=== PATIENT | female | born 1965 | race Caucasian/White ===

== ENCOUNTER 2017-02-27 16:34 | Emergency (ER) | payer BC ==
[2017-02-27 17:08] VITALS: BP 141/70
--- NOTE | 2017-02-28 15:07 | ER ---
DATE SEEN: 02/27/2017 She was seen at 1655 hours. CHIEF COMPLAINT: Right eye pain. HISTORY OF PRESENT ILLNESS: The patient tried to remove a contact from her right eye last night, and she has what she considers to be an abrasion in right eye. She has severe pain. She has been unable to get into the hospital ER because she did not have a ride until now, much later in the day. She has suffered through this since last night, about 12 to 16 hours since she had the abrasion in the right eye. Vision is compromised in her right eye. There is severe pain. PAST MEDICAL HISTORY: Depression, GERD, chronic pain, and anxiety. REVIEW OF SYSTEMS: Otherwise negative. PHYSICAL EXAMINATION: VITAL SIGNS: Blood pressure 141/40, heart rate 75, respirations 18, oxygen saturation 100% on room air, and 36.6 degrees centigrade temperature. HEENT: Examination with both fluorescein stain and after tetracaine placed, she has an inferior 4 o'clock to 8 o'clock limbus abrasion that extends over the cornea and she has a markedly increased and more intense abrasion over the top of her eye from a 2 o'clock to 11 o'clock position. She also has partial opacification of the cornea. I am able to see the eyegrounds, retinal eye vessels, and also the optic cup and discs and they are normal. ASSESSMENT: Very severe corneal abrasion with possible underlying conjunctivitis. PLAN: Treat with moxifloxacin drops b.i.d. and also treat with liquid tears and hydrocodone 5/325 for pain. Follow up with doctor in less than 24 hours. She will be seen by doctor and/or marketing project coordinator for status of eye. She was not given any topical eye analgesic medicine. She also was given ketorolac 1 drop right eye q.i.d. Follow up with doctor in 24 hours and/or marketing project coordinator. Also, she had a vision check, and the vision was absent. She could only see to 20/200. /[id number] CORINNE/MELISA XIONG
== END 2017-02-27 17:30 | disposition home or self-care (01) ==
LOC: FB.ED 16:34
DX: S05.01XA Injury of conjunctiva and corneal abrasion without foreign body, right eye, initial encounter (principal); X58.XXXA Exposure to other specified factors, initial encounter
CPT/HCPCS: 99283

== ENCOUNTER 2017-05-12 23:24 | Emergency (ER) | payer BC ==
[2017-05-12] MEDS ORDERED: Aspirin 81 MG Tab.Chew PO ONE (23:30)
[2017-05-13] MEDS ORDERED: Alum Hydroxide/Mag Hydroxide 30 ML, Lidocaine 2% 15 ML PO ONE ×4 (00:16→00:56)
--- NOTE | 2017-05-13 01:13 | EDM.PDOC ---
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 pt ate cold meat and cheese and 9 PM and onset of epigastric burning that radiated up under her sternum, slight nausea, no V, no sob, no f/c/d pain 04/08 altho looked fairly comfortable, pain dec'd 12/07 after 1st GI cocktail with 1+ epigastric tender that dec'd to trace pain and tenderness improved after 2nd GI cocktail altho not gone completely labs and EKG all neg, pt eager to get back to work tonight, did reluctantly agree to take the rest of the night off and to get some rest PCP Dr Mitchell did have evaluation and u/s 2y ago for GB disease which pt says was indeterminate has smoked 1 ppd in past h/o GERD took no meds tonight reports she has been having similar episodes of epigastric pain weekly for the past several weeks, not always with eating food Chest Pain Score (Numeric/FACES): 10 - Related Data Allergies Allergy/AdvReac Type Severity Reaction Status Date / Time Penicillins Allergy Cannot Verified 05/12/17 23:55 Remember sulfamethoxazole Allergy Cannot Verified 05/12/17 23:55 [From Bactrim] Remember trimethoprim [From Bactrim] Allergy Cannot Verified 05/12/17 23:55 Remember Home Meds: Home Meds Gabapentin [Neurontin] 1 tab PO BID 07/14/14 [History] Sertraline [Zoloft] 1 tab PO DAILY 07/14/14 [History] Amitriptyline [Elavil] 10 mg PO BEDTIME 05/12/17 [History] Omeprazole 20 mg PO DAILY #14 cap.cr 05/13/17 [Rx] Potassium Chloride [K-Tab ER] 20 meq PO BID #6 tablet.er 05/13/17 [Rx] Past Medical History - Past Health History Medical/Surgical History: Denies Medical/Surgical History Social & Family History - Tobacco Use Smoking Status *Q: Current Every Day Smoker Years of Tobacco use: 35 Packs/Tins Daily: 0.2 Second Hand Smoke Exposure: No - Caffeine Use Caffeine Use: Reports: Coffee, Soda - Alcohol Use Days Per Week of Alcohol Use: 3 Number of Drinks Per Day: 2 Total Drinks Per Week: 6 - Recreational Drug Use Recreational Drug Use: No ED ROS GENERAL - Review of Systems Review Of Systems: See Below Constitutional: Reports: No Symptoms HEENT: Reports: No Symptoms Respiratory: Reports: No Symptoms Cardiovascular: Reports: No Symptoms Endocrine: Reports: No Symptoms GI/Abdominal: Reports: Abdominal Pain, Nausea : Reports: No Symptoms Musculoskeletal: Reports: No Symptoms Skin: Reports: No Symptoms Neurological: Reports: No Symptoms Psychiatric: Reports: No Symptoms Hematologic/Lymphatic: Reports: No Symptoms Immunologic: Reports: No Symptoms ED EXAM, GI/ABD - Physical Exam Exam: See Below Exam Limited By: No Limitations General Appearance: Alert, WD/WN, Mild Distress Ears: Normal External Exam Nose: Normal Inspection Throat/Mouth: Normal Inspection, Normal Voice, No Airway Compromise Head: Atraumatic, Normocephalic Neck: Normal Inspection, Supple, Non-Tender, Full Range of Motion Respiratory/Chest: No Respiratory Distress, Lungs Clear, Normal Breath Sounds, No Accessory Muscle Use, Chest Non-Tender Cardiovascular: Normal Peripheral Pulses, Regular Rate, Rhythm, No Edema, No Gallop, No JVD, No Murmur, No Rub GI/Abdominal Exam: Normal Bowel Sounds, Soft, No Organomegaly, No Distention, No Mass, Pelvis Stable, Other (1+ epigastric tender, sternum and ribs NT, holding hand over epigastrium) Back Exam: Normal Inspection, Full Range of Motion, NT Extremities: Normal Inspection, Normal Range of Motion, Non-Tender, No Pedal Edema Neurological: Alert, Oriented, CN II-XII Intact, Normal Cognition, No Motor/ Sensory Deficits Psychiatric: Normal Affect, Normal Mood Skin Exam: Warm, Dry, Intact, Normal Color, No Rash Lymphatic: No Adenopathy Course - Vital Signs Last Recorded V/S: Last Vital Signs Temp 36.6 C 05/12/17 23:24 Pulse Resp BP Pulse Ox - Orders/Labs/Meds Orders: Active Orders 24 hr Category Date Time Status Pantoprazole [ProTONIX] Med 05/13/17 01:45 Active 40 mg PO 0600 Medication Orders Pantoprazole Sodium (Protonix) 40 mg PO 0600 LONNIE Last Admin: 05/13/17 01:46 Dose: 40 mg Labs: Laboratory Tests 05/12/17 05/12/17 05/12/17 Range/Units 00:35 23:35 23:35 WBC 6.5 (4.5-12.0) X10-3/uL RBC 4.62 (3.23-5.20) x10(6)uL Hgb 13.5 (11.5-15.5) g/dL Hct 39.9 (30.0-51.3) % MCV 86.4 (80-96) fL MCH 29.3 (27.7-33.6) pg MCHC 33.9 (32.2-35.4) g/dL RDW 14.4 (11.5-15.5) % Plt Count 240 (125-369) X10(3)uL MPV 8.8 (7.4-10.4) fL Neut % (Auto) 56.7 (46-82) % Lymph % (Auto) 32.8 (13-37) % [facility] % (Auto) 7.8 (4-12) % Eos % (Auto) 2 (1.0-5.0) % Baso % (Auto) 1 (0-2) % Neut # (Auto) 3.8 (1.6-8.3) # Lymph # (Auto) 2.1 (0.6-5.0) # [facility] # (Auto) 0.5 (0.0-1.3) # Eos # (Auto) 0.1 (0.0-0.8) # Baso # (Auto) 0.0 (0.0-0.2) # Sodium 137 (135-145) mmol/L Potassium 2.9 L (3.5-5.3) mmol/L Chloride 103 (100-110) mmol/L Carbon Dioxide 26 (23-29) mmol/L BUN 9 (5-20) mg/dL Creatinine 0.6 (0.6-1.3) mg/dL Est Cr Clr Drug Dosing TNP Estimated GFR (MDRD) > 60 (>60) BUN/Creatinine Ratio 15.0 (9-20) Glucose 85 (80-116) mg/dL Calcium 9.3 (8.6-10.2) mg/dL Total Bilirubin 0.4 (0.1-1.3) mg/dL AST 21 (5-27) IU/L ALT 14 (14-26) IU/L Alkaline Phosphatase 51 L (56-112) IU/L Creatine Kinase (60-160) IU/L Troponin I (0.02-0.06) NG/ML Total Protein 7.6 (6.0-8.0) g/dL Albumin 4.3 (3.5-5.2) g/dL Globulin 3.3 g/dL Albumin/Globulin Ratio 1.3 Amylase 55 (28-100) U/L 05/12/17 05/12/17 05/13/17 Range/Units 23:35 23:35 02:05 WBC (4.5-12.0) X10-3/uL RBC (3.23-5.20) x10(6)uL Hgb (11.5-15.5) g/dL Hct (30.0-51.3) % MCV (80-96) fL MCH (27.7-33.6) pg MCHC (32.2-35.4) g/dL RDW (11.5-15.5) % Plt Count (125-369) X10(3)uL MPV (7.4-10.4) fL Neut % (Auto) (46-82) % Lymph % (Auto) (13-37) % [facility] % (Auto) (4-12) % Eos % (Auto) (1.0-5.0) % Baso % (Auto) (0-2) % Neut # (Auto) (1.6-8.3) # Lymph # (Auto) (0.6-5.0) # [facility] # (Auto) (0.0-1.3) # Eos # (Auto) (0.0-0.8) # Baso # (Auto) (0.0-0.2) # Sodium (135-145) mmol/L Potassium (3.5-5.3) mmol/L Chloride (100-110) mmol/L Carbon Dioxide (23-29) mmol/L BUN (5-20) mg/dL Creatinine (0.6-1.3) mg/dL Est Cr Clr Drug Dosing Estimated GFR (MDRD) (>60) BUN/Creatinine Ratio (9-20) Glucose (80-116) mg/dL Calcium (8.6-10.2) mg/dL Total Bilirubin (0.1-1.3) mg/dL AST (5-27) IU/L ALT (14-26) IU/L Alkaline Phosphatase (56-112) IU/L Creatine Kinase 67 (60-160) IU/L Troponin I < 0.01 L < 0.01 L (0.02-0.06) NG/ML Total Protein (6.0-8.0) g/dL Albumin (3.5-5.2) g/dL Globulin g/dL Albumin/Globulin Ratio Amylase (28-100) U/L Meds: Medications Generic Name Dose Route Start Last Admin Trade Name Freq PRN Reason Stop Dose Admin Pantoprazole Sodium 40 mg 05/13/17 01:45 05/13/17 01:46 Protonix PO 40 mg 0600 LONNIE Administration Discontinued Medications Generic Name Dose Route Start Last Admin Trade Name Freq PRN Reason Stop Dose Admin Hydrocodone Bitart/Acetaminophen 1 tab 05/13/17 01:32 05/13/17 01:42 [place] 325-5 Mg PO 05/13/17 01:33 1 tab ONETIME ONE Administration Al Hydroxide/Mg Hydroxide 30 0 ml 05/13/17 00:16 05/13/17 00:29 ml/ Lidocaine HCl 15 ml PO 05/13/17 00:17 45 ml ONETIME ONE Administration Al Hydroxide/Mg Hydroxide 30 0 ml 05/13/17 00:56 05/13/17 01:08 ml/ Lidocaine HCl 15 ml PO 05/13/17 00:57 45 ml ONETIME ONE Administration Ketorolac Tromethamine 60 mg 05/13/17 01:31 05/13/17 01:42 Toradol IM 05/13/17 01:32 60 mg ONETIME ONE Administration Pantoprazole Sodium 40 mg 05/13/17 06:00 Protonix PO 0600 LONNIE Potassium Chloride 40 meq 05/13/17 01:17 05/13/17 01:42 Klor-Con M20 PO 05/13/17 01:18 40 meq ONETIME ONE Administration Departure - Departure Time of Disposition: 02:35 Disposition: Home, Self-Care 01 Condition: Good Clinical Impression: GERD (gastroesophageal reflux disease), Hypokalemia - Discharge Information Prescriptions: Omeprazole 20 mg PO DAILY #14 cap.cr Potassium Chloride [K-Tab ER] 20 meq PO BID #6 tablet.er Instructions: Hypokalemia, Biliary Colic, Gastroesophageal Reflux Disease, Adult Referrals: PCP,None [Primary Care Provider] - Additional Instructions: To decrease acid production, take omeprazole 20 mg 1 tab daily for 2 weeks. To replace potassium and decrease spasm, take potassium 20 meq 1 tab 2 times a day for 3 days. To neutralize acid, take liquid antacid 15 cc (one tablespoon) 2 hours after meals and bedtime for 3 days. Limit fatty food. No work tonight. Return for ultrasound of your gallbladder as per instructions from radiology, who will call you. See your doctor in 2 days. Return to ED if you are feeling worse. Call your Physician or Return to Emergency Department if: * Your condition worsens in any way. * You develop fever greater than 100.4. * You have vomitting that does not stop with medications. * You have pain that is not controlled with medications. - My Orders Last 24 Hours: My Active Orders 05/13/17 01:45 Pantoprazole [ProTONIX] 40 mg PO 0600 - Assessment/Plan Last 24 Hours: My Active Orders 05/13/17 01:45 Pantoprazole [ProTONIX] 40 mg PO 0600
[2017-05-13] MEDS ORDERED: Potassium Chloride 20 MEQ Tab.ER PO ONE (01:17)
[2017-05-13] MEDS ORDERED: Ketorolac 60 MG/2 ML SDV IM ONE (01:31)
[2017-05-13] MEDS ORDERED: Acetaminophen/HYDROcodone 325-5 MG Tab PO ONE (01:32)
[2017-05-13] MEDS ORDERED: Pantoprazole 40 MG Tab.CR PO SCH ×2 (01:45→06:00)
== END 2017-05-13 02:45 | disposition home or self-care (01) ==
LOC: FB.ED 23:24
DX: K21.9 Gastro-esophageal reflux disease without esophagitis (principal); E87.6 Hypokalemia; F17.210 Nicotine dependence, cigarettes, uncomplicated; Z79.899 Other long term (current) drug therapy; Z88.0 Allergy status to penicillin; Z88.1 Allergy status to other antibiotic agents; Z88.2 Allergy status to sulfonamides
CPT/HCPCS: 36415; 80053; 82150; 82550; 84484; 85025; 93005; 96372; 99285; A9270; J1885

== ENCOUNTER 2017-10-05 20:58 | Emergency (ER) | payer BC ==
[2017-10-05] MEDS ORDERED: Ketorolac 60 MG/2 ML SDV IM ONE (21:13)
--- NOTE | 2017-10-05 21:52 | EDM.PDOC ---
ED HPI GENERAL MEDICAL PROBLEM - General Chief Complaint: Upper Extremity Injury/Pain Stated Complaint: RT SHOULDER PAIN Time Seen by Provider: 10/05/17 20:58 Source of Information: Reports: Patient History Limitations: Reports: No Limitations - History of Present Illness INITIAL COMMENTS - FREE TEXT/NARRATIVE: 52 y.o.w.f came to the ED after she injured her right shoulder on a cabinet. She has now right shoulder discomfort with movement. There is a small bruise on her prox shoulder. No N/V/D, no dizziness or any other acute medical issues. BP 131/81 Pulse 78 RR 18 Pulse ox 98% Temp 36.8 Onset Date: 10/05/17 Onset Time: 11:00 Duration: Hour(s):, Intermittent Location: Reports: Upper Extremity, Right (shoulder ) Quality: Reports: Ache, Burning, Dull Severity: Moderate Improves with: Reports: Rest Worsens with: Reports: Movement Context: Reports: Trauma Associated Symptoms: Reports: No Other Symptoms Rt shoulder pain Pain Score (Numeric/FACES): 9 - Related Data Allergies Allergy/AdvReac Type Severity Reaction Status Date / Time Penicillins Allergy Cannot Verified 10/05/17 21:14 Remember sulfamethoxazole Allergy Cannot Verified 10/05/17 21:14 [From Bactrim] Remember trimethoprim [From Bactrim] Allergy Cannot Verified 10/05/17 21:14 Remember Home Meds: Home Meds Gabapentin [Neurontin] 600 mg PO TID 07/14/14 [History] Sertraline [Zoloft] 100 mg PO DAILY 07/14/14 [History] Amitriptyline [Elavil] 10 mg PO BEDTIME 05/12/17 [History] Omeprazole 20 mg PO DAILY #14 cap.cr 05/13/17 [Rx] Orphenadrine [Norflex] 100 mg PO BID PRN #20 tab.er 10/05/17 [Rx] Past Medical History - Past Health History Medical/Surgical History: Denies Medical/Surgical History Cardiovascular History: Reports: Hypertension, Other (See Below) Other Cardiovascular History: "high blood pressure at times" - Past Surgical History HEENT Surgical History: Reports: Other (See Below) Other HEENT Surgeries/Procedures: "chronic tonsillitis" Social & Family History - Family History Family Medical History: Noncontributory - Tobacco Use Smoking Status *Q: Current Every Day Smoker Years of Tobacco use: 35 Packs/Tins Daily: 0.2 Second Hand Smoke Exposure: No - Caffeine Use Caffeine Use: Reports: Coffee, Soda - Alcohol Use Days Per Week of Alcohol Use: 3 Number of Drinks Per Day: 2 Total Drinks Per Week: 6 - Recreational Drug Use Recreational Drug Use: No Review of Systems - Review of Systems Review Of Systems: See Below Constitutional: Reports: No Symptoms Eyes: Reports: No Symptoms Ears: Reports: No Symptoms Nose: Reports: No Symptoms Mouth/Throat: Reports: No Symptoms Respiratory: Reports: No Symptoms Cardiovascular: Reports: No Symptoms GI/Abdominal: Reports: No Symptoms Genitourinary: Reports: No Symptoms Musculoskeletal: Reports: Shoulder Pain Skin: Reports: Rash (right shoulder) Neurological: Reports: No Symptoms Psychiatric: Reports: No Symptoms ED EXAM, GENERAL - Physical Exam Exam: See Below Exam Limited By: No Limitations General Appearance: Alert, WD/WN, Mild Distress Eye Exam: Bilateral Eye: Normal Inspection Ears: Normal External Exam Ear Exam: Bilateral Ear: Auricle Normal Nose: Normal Inspection, Normal Mucosa Throat/Mouth: Normal Inspection Head: Atraumatic, Normocephalic Neck: Normal Inspection, Supple, Non-Tender Respiratory/Chest: No Respiratory Distress, Lungs Clear, Normal Breath Sounds Cardiovascular: Normal Peripheral Pulses Peripheral Pulses: 2+: Brachial (L) GI/Abdominal: Normal Bowel Sounds, Soft (Female) Exam: Deferred Rectal (Female) Exam: Deferred Back Exam: Normal Inspection, Full Range of Motion Extremities: Limited Range of Motion (due to right shoulder discomfort) Neurological: Alert, Oriented, CN II-XII Intact, Normal Cognition Psychiatric: Normal Affect, Normal Mood Skin Exam: Warm Lymphatic: No Adenopathy Course - Vital Signs Text/Narrative:: 52 y.o.w.f came to the ED after she injured her right shoulder on a cabinet. She has now right shoulder discomfort with movement. There is a small bruise on her prox shoulder. No N/V/D, no dizziness or any other acute medical issues. BP 131/81 Pulse 78 RR 18 Pulse ox 98% Temp 36.8 PE: WNWD W F with right shoulder discomort after trauma, limited ROM right shoulder due to pain. Imaging: Right shoulder: NAD, official report is pending Impression: Right shoulder sprain DDX: rotator cuff tear Tx: Ice, Motrin, armsling Reexam: improved Plan: D/C with instructions Last Recorded V/S: Last Vital Signs Temp 36.5 C 10/05/17 22:10 Pulse 78 10/05/17 22:10 Resp 17 10/05/17 22:10 BP 139/75 10/05/17 22:10 Pulse Ox 99 10/05/17 22:10 - Orders/Labs/Meds Meds: Medications Discontinued Medications Generic Name Dose Route Start Last Admin Trade Name Brendan PRN Reason Stop Dose Admin Ketorolac Tromethamine 60 mg 10/05/17 21:13 10/05/17 21:22 Toradol IM 10/05/17 21:14 60 mg ONETIME ONE Administration Departure - Departure Time of Disposition: 21:52 Disposition: Home, Self-Care 01 Condition: Good Clinical Impression: Sprain of shoulder, right Qualifiers: Encounter type: initial encounter Shoulder sprain type: unspecified sprain Qualified Code(s): S43.401A - Unspecified sprain of right shoulder joint, initial encounter - Discharge Information Prescriptions: Orphenadrine [Norflex] 100 mg PO BID PRN #20 tab.er PRN Reason: for severe spasm only Instructions: Shoulder Pain Referrals: PCP,None [Primary Care Provider] - Forms: ED Department Discharge Additional Instructions: Please take motrin for pain, apply ice to the affected areas, use armsling, take Norflex for spasms. please f/u come back to the ED if your symptoms get worse acutely
[2017-10-05 22:15] VITALS: BP 139/75
--- NOTE | 2017-10-06 13:43 | CR ---
INDICATION: Hit bottom of cupboard door yesterday, bruising top of shoulder - AC joint area. RIGHT SHOULDER: Three views of the right shoulder were obtained and revealed minimal degenerative changes at the AC joint with no evidence of a fracture, dislocation, or other significant bone or joint abnormality. Adjacent ribs were intact in appearance. MTDD
== END 2017-10-05 22:10 | disposition home or self-care (01) ==
LOC: FB.ED 20:58
DX: S43.401A Unspecified sprain of right shoulder joint, initial encounter (principal); F17.210 Nicotine dependence, cigarettes, uncomplicated; I10 Essential (primary) hypertension; Z88.2 Allergy status to sulfonamides; Z88.1 Allergy status to other antibiotic agents; Z88.0 Allergy status to penicillin; Z79.899 Other long term (current) drug therapy; W22.8XXA Striking against or struck by other objects, initial encounter
CPT/HCPCS: 73030; 96372; 99283; J1885

== ENCOUNTER 2018-02-21 13:48 | Emergency (ER) | payer OTHER, BC ==
[2018-02-21] MEDS ORDERED: Lidocaine 2% 20 ML MDV INFILT ONE (13:49)
[2018-02-21] MEDS ORDERED: Ketorolac 60 MG/2 ML SDV IM ONE (14:25)
--- NOTE | 2018-02-21 14:25 | EDM.PDOC ---
ED HPI GENERAL MEDICAL PROBLEM - General Chief Complaint: Head Injury Stated Complaint: HEAD WOUND Time Seen by Provider: 02/21/18 13:48 Source of Information: Reports: Patient History Limitations: Reports: No Limitations - History of Present Illness INITIAL COMMENTS - FREE TEXT/NARRATIVE: 52 y.o.w.po came to the ed after she hit her head at work. She was brought to the ed by her coworker. No loc, no dizziness. Pt felt mild nauseated. No vomiting. No SOB, no other injuries or any other acute medical issues. BP 153/ 92 RR 18 O2 sat 98% on RA Temp 36.6 pulse 86 Onset Date: 02/21/18 Onset Time: 12:05 Duration: Hour(s): Location: Reports: Head Quality: Reports: Ache Improves with: Reports: Rest Worsens with: Reports: Movement Context: Reports: Trauma Associated Symptoms: Reports: No Other Symptoms Top of head Pain Score (Numeric/FACES): 8 - Related Data Allergies Allergy/AdvReac Type Severity Reaction Status Date / Time Penicillins Allergy Cannot Verified 02/21/18 14:06 Remember sulfamethoxazole Allergy Cannot Verified 02/21/18 14:06 [From Bactrim] Remember trimethoprim [From Bactrim] Allergy Cannot Verified 02/21/18 14:06 Remember Home Meds: Home Meds Gabapentin [Neurontin] 600 mg PO TID PRN 07/14/14 [History] Sertraline [Zoloft] 100 mg PO DAILY 07/14/14 [History] Amitriptyline [Elavil] 25 mg PO BEDTIME PRN 05/12/17 [History] Cyclobenzaprine HCl 10 mg BEDTIME PRN 02/21/18 [History] Ranitidine HCl [Zantac] 150 mg PO DAILY PRN 02/21/18 [History] Past Medical History - Past Health History Medical/Surgical History: Denies Medical/Surgical History Cardiovascular History: Reports: Hypertension, Other (See Below) Other Cardiovascular History: "high blood pressure at times" 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: Psychiatric History: Reports: Anxiety, Depression, Panic Attack - Past Surgical History HEENT Surgical History: Reports: Other (See Below) Other HEENT Surgeries/Procedures: "chronic tonsillitis" Social & Family History - Family History Family Medical History: Noncontributory - Caffeine Use Caffeine Use: Reports: Coffee, Soda ED ROS GENERAL - Review of Systems Review Of Systems: See Below Constitutional: Reports: No Symptoms HEENT: Reports: No Symptoms Respiratory: Reports: No Symptoms Cardiovascular: Reports: No Symptoms Endocrine: Reports: No Symptoms GI/Abdominal: Reports: No Symptoms : Reports: No Symptoms Musculoskeletal: Reports: No Symptoms Skin: Reports: Wound (right tim) Neurological: Reports: No Symptoms Psychiatric: Reports: No Symptoms Hematologic/Lymphatic: Reports: No Symptoms Immunologic: Reports: No Symptoms ED EXAM, HEAD INJURY - Physical Exam Exam: See Below Exam Limited By: No Limitations General Appearance: Alert, WD/WN, Mild Distress Head: Normocephalic, Other (scalp lac) Eyes: Bilateral Eye: Normal Inspection Ears: Normal External Exam Nose: Normal Inspection Throat/Mouth: Normal Inspection, Normal Lips, Normal Gums, Normal Oropharynx, Normal Voice, No Airway Compromise Neck: Non-Tender, Full Range of Motion, Normal Alignment, Normal Inspection Respiratory: No Respiratory Distress, Lungs Clear, Normal Breath Sounds, No Accessory Muscle Use, Chest Non-Tender Cardiovascular: Normal Peripheral Pulses, Regular Rate, Rhythm, No Edema, No Gallop, No JVD, No Murmur GI/Abdominal Exam: Normal Bowel Sounds, Soft, Non-Tender, No Organomegaly, No Distention, No Abnormal Bruit, No Mass, Pelvis Stable (Female) Exam: Deferred Rectal (Female) Exam: Deferred Back Exam: Normal Inspection, Full Range of Motion Extremities: Normal Inspection, Normal Range of Motion, Non-Tender, No Pedal Edema, Normal Capillary Refill 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 As Tested, No Motor/Sensory Deficits, Alert, Normal Mood/Affect, Oriented x 3 Skin: Normal Color, Other (head Lac) - Elpidio Coma Score Best Eye Response (Carlyle): (4) Open Spontaneously Best Verbal Response (Carlyle): (5) Oriented Best Motor Response (Carlyle): (6) Obeys Commands Elpidio Total: 15 ED LACERATION/WOUND & HALINA PROC - Laceration/Wound Repair Right Head Lac/wound length in cm: 1.5 (right tim) Appearance: Subcutaneous, Linear, Clean Distal NVT: Neuro & Vascular Intact, No Tendon Injury Anesthetic Type: Local Local Anesthesia - Lidocaine (Xylocaine): 2% Plain Local Anesthetic Volume: 1cc Skin Prep: Chlorhexidine (Hibiciens) Saline irrigation (cc's): 5 Exploration/Debridement/Repair: Wound Explored, In a Bloodless Field, Explored to Base Closed with: Tomasz # of Sutures: 3 Suture Type: Interrupted Drain Placement: No Sterile Dressing Applied: Nurse Tetanus Status Addressed: Yes (UTD < 5 years) Complications: No Course - Vital Signs Text/Narrative:: 52 y.o.w.f came to the ed after she hit her head at work. She was brought to the ed by her coworker. No loc, no dizziness. Pt felt mild nauseated. No vomiting. No SOB, no other injuries or any other acute medical issues. BP 153/ 92 RR 18 O2 sat 98% on RA Temp 36.6 pulse 86 PE: WNWD W F with a work related head LAC. No LOC procedure: Please see note above. Impression: Head Laceration, repaired in the ED Tx: Wound care, Toradol, Zofran Reexam: Improved Plan: D/C with instructions Last Recorded V/S: Last Vital Signs Temp 36.8 C 02/21/18 13:52 Pulse 91 02/21/18 13:52 Resp 18 02/21/18 14:33 BP 153/85 H 02/21/18 14:33 Pulse Ox 98 02/21/18 14:33 - Orders/Labs/Meds Meds: Medications Discontinued Medications Generic Name Dose Route Start Last Admin Trade Name Brendan PRN Reason Stop Dose Admin Ketorolac Tromethamine 60 mg 02/21/18 14:25 02/21/18 14:35 Toradol IM 02/21/18 14:26 60 mg ONETIME ONE Administration Ondansetron HCl 8 mg 02/21/18 14:26 02/21/18 14:34 Zofran Odt PO 02/21/18 14:27 8 mg ONETIME ONE Administration Departure - Departure Time of Disposition: 14:26 Disposition: Home, Self-Care 01 Condition: Good Clinical Impression: Laceration Head injury Qualifiers: Encounter type: initial encounter Qualified Code(s): S09.90XA - Unspecified injury of head, initial encounter - Discharge Information Instructions: Ketorolac injection, Stitches, [place], or Adhesive Wound Closure , [id number] Referrals: Shilpi Aguirre PA-C [Primary Care Provider] - Forms: ED Department Discharge Additional Instructions: Please apply Neosporin ointment to wound twice daily for the next 4 days, wound check in 3 days at clinic, staple removal in 5-7 days at clinic. Call for appt. Please come back to the ed if your symptoms get worse acutely. Tylenol as needed for pain.
[2018-02-21] MEDS ORDERED: Ondansetron 8 MG Tab.DIS PO ONE (14:26)
[2018-02-21 14:34] VITALS: BP 153/85
== END 2018-02-21 14:50 | disposition home or self-care (01) ==
LOC: FB.ED 13:48
DX: S01.01XA Laceration without foreign body of scalp, initial encounter (principal); I10 Essential (primary) hypertension; Z88.0 Allergy status to penicillin; Z88.2 Allergy status to sulfonamides; W22.8XXA Striking against or struck by other objects, initial encounter; Y93.89 Activity, other specified; Y92.89 Other specified places as the place of occurrence of the external cause; Y99.0 Civilian activity done for income or pay
CPT/HCPCS: 12001; 99000; 99283; A9270; J1885

== ENCOUNTER 2018-12-03 01:22 | Emergency (ER) | payer BC, OTHER ==
[2018-12-03] MEDS ORDERED: Albuterol/Ipratropium 3.0-0.5 MG/3 ML Neb Soln NEB ONE (01:38)
[2018-12-03] MEDS ORDERED: Aspirin 81 MG Tab.Chew PO ONE (01:38)
[2018-12-03] MEDS ORDERED: Nitroglycerin 2% Oint 1 GM UD Packet TOP ONE ×2 (01:41→02:30)
[2018-12-03] MEDS: Nitroglycerin 0.4 MG Tab.SL SL PRN ×2 (01:42→01:50)
--- NOTE | 2018-12-03 01:43 | EDM.PDOC ---
ED HPI GENERAL MEDICAL PROBLEM - General Stated Complaint: CHEST PAIN Time Seen by Provider: 12/03/18 01:22 Source of Information: Reports: Patient, Family History Limitations: Reports: No Limitations - History of Present Illness INITIAL COMMENTS - FREE TEXT/NARRATIVE: 53 y.o.w f -smoker- came to ed due to SSCP, nonradiating. No H/O Of CAD. Pain is rated as 10/10, worse with inspiration. No trauma. No diaphoresis. No SOB or cough. No other acute medical issues BP 168/88 Pulse ox 98% on RA Pulse 80 RR 18 Temp 36.6 Onset Date: 12/03/18 Onset Time: 01:00 Duration: Minutes: Location: Reports: Chest Quality: Reports: Ache, Burning, Dull Severity: Moderate Improves with: Reports: Cold Therapy, Rest Worsens with: Reports: Movement Associated Symptoms: Reports: No Other Symptoms, Chest Pain mid chest Pain Score (Numeric/FACES): 10 - Related Data Allergies Allergy/AdvReac Type Severity Reaction Status Date / Time Penicillins Allergy Cannot Verified 12/03/18 01:39 Remember sulfamethoxazole Allergy Cannot Verified 12/03/18 01:39 [From Bactrim] Remember trimethoprim [From Bactrim] Allergy Cannot Verified 12/03/18 01:39 Remember Home Meds: Home Meds Gabapentin [Neurontin] 600 mg PO TID PRN 07/14/14 [History] Sertraline [Zoloft] 100 mg PO DAILY 07/14/14 [History] Amitriptyline [Elavil] 25 mg PO BEDTIME PRN 05/12/17 [History] Cyclobenzaprine HCl 10 mg BEDTIME PRN 02/21/18 [History] Ranitidine HCl [Zantac] 150 mg PO DAILY PRN 02/21/18 [History] Acyclovir [Zovirax] 800 mg PO 5XDAY #30 tab 12/03/18 [Rx] Past Medical History - Past Health History Medical/Surgical History: Denies Medical/Surgical History Cardiovascular History: Reports: Hypertension, Other (See Below) Other Cardiovascular History: "high blood pressure at times" Gastrointestinal History: Reports: None Genitourinary History: Reports: None 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: Musculoskeletal History: Reports: Fracture Other Musculoskeletal History: hx R gt toe fx Neurological History: Reports: Migraines Psychiatric History: Reports: Anxiety, Depression, Panic Attack - Infectious Disease History Infectious Disease History: Reports: Chicken Pox, Shingles - Past Surgical History HEENT Surgical History: Reports: Other (See Below) Other HEENT Surgeries/Procedures: "chronic tonsillitis" Social & Family History - Family History Family Medical History: Noncontributory - Caffeine Use Caffeine Use: Reports: Coffee, Soda ED ROS GENERAL - Review of Systems Review Of Systems: See Below Constitutional: Reports: No Symptoms, Weight Gain HEENT: Reports: No Symptoms Respiratory: Reports: Cough Cardiovascular: Reports: No Symptoms Endocrine: Reports: No Symptoms GI/Abdominal: Reports: No Symptoms : Reports: No Symptoms Musculoskeletal: Reports: No Symptoms Skin: Reports: No Symptoms Neurological: Reports: No Symptoms Psychiatric: Reports: No Symptoms Hematologic/Lymphatic: Reports: No Symptoms Immunologic: Reports: No Symptoms ED EXAM, GENERAL - Physical Exam Exam: See Below Exam Limited By: No Limitations General Appearance: Alert, WD/WN, Thin Eye Exam: Bilateral Eye: Normal Inspection Ears: Normal External Exam Ear Exam: Bilateral Ear: Auricle Normal Nose: Normal Inspection, Normal Mucosa, No Blood Throat/Mouth: Normal Inspection, Normal Lips, Normal Voice, No Airway Compromise , Other (poor dentition) Head: Atraumatic, Normocephalic Neck: Normal Inspection, Supple, Non-Tender, Full Range of Motion Respiratory/Chest: No Respiratory Distress, Respiratory Distress, Rhonchi, Wheezing Cardiovascular: Normal Peripheral Pulses, Regular Rate, Rhythm, No Edema, No Rub GI/Abdominal: Normal Bowel Sounds, Soft, Non-Tender, No Organomegaly (Female) Exam: Deferred Rectal (Female) Exam: Deferred Back Exam: Normal Inspection, Full Range of Motion Extremities: Normal Inspection, Normal Range of Motion Neurological: Alert, Oriented, CN II-XII Intact, Normal Cognition, Normal Gait Psychiatric: Normal Affect Skin Exam: Warm, Dry, Intact, Normal Color Lymphatic: No Adenopathy EKG INTERPRETATION EKG Date: 12/03/18 Time: 01:25 Rhythm: NSR Rate (Beats/Min): 73 [place]: Normal P-Wave: Present QRS: Normal ST-T: Normal QT: Normal Comparison: NA - No Prior EKG (2nd ECG taked 3 hours after the first ECG: No change) Course - Vital Signs Text/Narrative:: 53 y.o.w f -smoker- came to te ed due to SSCP, nonradiating. No H/O Of CAD. Pain is rated as 10/10, worse with inspiration. No trauma. No diaphoresis. No SOB or cough. No other acute medical issues BP 168/88 Pulse ox 98% on RA Pulse 80 RR 18 Temp 36.6 PE: WNW W F with chest pain and shingles at her lower back Labs: CBC, BMP and Troponin were neg. 2nd troponin after 3 hours was neg as well , Imaging: CXR: NAD as per RAD Impression: A typical chest pain, Shingles at lower back Tx: ASA, NTG, Toradol, Tylenol and Morphin Reexam: Pain improved. Pt says now, pain started after she was lifting a heavy weight at work Plan: D/C with instructions Last Recorded V/S: Last Vital Signs Temp 36.7 C 12/03/18 01:22 Pulse 80 12/03/18 01:22 Resp 18 12/03/18 01:22 BP 138/106 H 12/03/18 01:50 Pulse Ox 98 12/03/18 01:22 - Orders/Labs/Meds Orders: Active Orders 24 hr Category Date Time Status EKG Documentation Completion [RC] ASDIRECTED Care 12/03/18 02:17 Active EKG Documentation Completion [RC] ASDIRECTED Care 12/03/18 02:47 Active RT Aerosol Therapy [RC] ASDIRECTED Care 12/03/18 01:39 Active Chest 1V Frontal [CR] Stat Exams 12/03/18 01:38 Taken Nitroglycerin [Nitrostat] Med 12/03/18 01:42 Active 0.4 mg SL Q5M PRN Sodium Chloride 0.9% [Normal Saline] 1,000 ml Med 12/03/18 01:45 Active IV ASDIRECTED EKG 12 Lead [EK] Routine Ther 12/03/18 02:17 Ordered EKG 12 Lead [EK] Routine Ther 12/03/18 04:20 Ordered Medication Orders Sodium Chloride (Normal Saline) 1,000 mls @ 125 mls/hr IV ASDIRECTED LONNIE Last Admin: 12/03/18 02:05 Dose: 125 mls/hr Nitroglycerin (Nitrostat) 0.4 mg SL Q5M PRN PRN Reason: Chest Pain Last Admin: 12/03/18 01:50 Dose: 0.4 mg Admin: 12/03/18 01:42 Dose: 0.4 mg Labs: Laboratory Tests 12/03/18 12/03/18 12/03/18 Range/Units 01:50 01:50 01:50 WBC 6.5 (4.5-12.0) X10-3/uL RBC 3.91 (3.23-5.20) x10(6)uL Hgb 12.4 (11.5-15.5) g/dL Hct 34.8 (30.0-51.3) % MCV 89.0 (80-96) fL MCH 31.6 (27.7-33.6) pg MCHC 35.5 H (32.2-35.4) g/dL RDW 14.4 (11.5-15.5) % Plt Count 233 (125-369) X10(3)uL MPV 8.4 (7.4-10.4) fL Neut % (Auto) 50.6 (46-82) % Lymph % (Auto) 38.9 H (13-37) % Millard % (Auto) 5.4 (4-12) % Eos % (Auto) 5 (1.0-5.0) % Baso % (Auto) 1 (0-2) % Neut # (Auto) 3.4 (1.6-8.3) # Lymph # (Auto) 2.5 (0.6-5.0) # Millard # (Auto) 0.3 (0.0-1.3) # Eos # (Auto) 0.3 (0.0-0.8) # Baso # (Auto) 0.0 (0.0-0.2) # PT (8.7-11.1) INR (0.89-1.13) D-Dimer, Quantitative (0.0-0.59) mg/LFEU Sodium 139 (135-145) mmol/L Potassium 3.8 (3.5-5.3) mmol/L Chloride 103 (100-110) mmol/L Carbon Dioxide 27 (21-32) mmol/L BUN 8 (7-18) mg/dL Creatinine 0.7 (0.55-1.02) mg/dL Est Cr Clr Drug Dosing TNP Estimated GFR (MDRD) > 60 (>60) BUN/Creatinine Ratio 11.4 (9-20) Glucose 94 (80-116) mg/dL Calcium 9.1 (8.6-10.2) mg/dL Troponin I < 0.017 L (<0.017-0.056) ng/mL 12/03/18 12/03/18 Range/Units 01:50 04:27 WBC (4.5-12.0) X10-3/uL RBC (3.23-5.20) x10(6)uL Hgb (11.5-15.5) g/dL Hct (30.0-51.3) % MCV (80-96) fL MCH (27.7-33.6) pg MCHC (32.2-35.4) g/dL RDW (11.5-15.5) % Plt Count (125-369) X10(3)uL MPV (7.4-10.4) fL Neut % (Auto) (46-82) % Lymph % (Auto) (13-37) % Millard % (Auto) (4-12) % Eos % (Auto) (1.0-5.0) % Baso % (Auto) (0-2) % Neut # (Auto) (1.6-8.3) # Lymph # (Auto) (0.6-5.0) # Millard # (Auto) (0.0-1.3) # Eos # (Auto) (0.0-0.8) # Baso # (Auto) (0.0-0.2) # PT 11.1 (8.7-11.1) INR 1.14 H (0.89-1.13) D-Dimer, Quantitative < 0.19 (0.0-0.59) mg/LFEU Sodium (135-145) mmol/L Potassium (3.5-5.3) mmol/L Chloride (100-110) mmol/L Carbon Dioxide (21-32) mmol/L BUN (7-18) mg/dL Creatinine (0.55-1.02) mg/dL Est Cr Clr Drug Dosing Estimated GFR (MDRD) (>60) BUN/Creatinine Ratio (9-20) Glucose (80-116) mg/dL Calcium (8.6-10.2) mg/dL Troponin I < 0.017 L (<0.017-0.056) ng/mL Meds: Medications Generic Name Dose Route Start Last Admin Trade Name Brendan PRN Reason Stop Dose Admin Sodium Chloride 1,000 mls @ 125 mls/hr 12/03/18 01:45 12/03/18 02:05 Normal Saline IV 125 mls/hr ASDIRECTED LONNIE Administration Nitroglycerin 0.4 mg 12/03/18 01:42 12/03/18 01:50 Nitrostat SL 0.4 mg Q5M PRN Administration Chest Pain Discontinued Medications Generic Name Dose Route Start Last Admin Trade Name Claudioq PRN Reason Stop Dose Admin Acetaminophen 650 mg 12/03/18 02:48 12/03/18 02:50 Tylenol PO 12/03/18 02:49 650 mg NOW ONE Administration Albuterol/Ipratropium 3 ml 12/03/18 01:38 12/03/18 02:02 Duoneb 3.0-0.5 Mg/3 Ml NEB 12/03/18 01:39 3 ml ONETIME ONE Administration Aspirin 324 mg 12/03/18 01:38 12/03/18 01:30 Aspirin PO 12/03/18 01:39 324 mg ONETIME ONE Administration Ketorolac Tromethamine 30 mg 12/03/18 01:59 12/03/18 02:11 Toradol IVPUSH 12/03/18 02:00 30 mg ONETIME ONE Administration Morphine Sulfate 2 mg 12/03/18 03:15 12/03/18 03:20 Morphine IVPUSH 12/03/18 03:16 2 mg ONETIME ONE Administration Nitroglycerin 1 gm 12/03/18 01:41 12/03/18 02:34 Nitro-Bid 2% TOP 12/03/18 01:42 Not Given ONETIME ONE Nitroglycerin 0.5 gm 12/03/18 02:30 12/03/18 02:31 Nitro-Bid 2% TOP 12/03/18 02:31 0.5 gm ONETIME ONE Administration Ondansetron HCl 8 mg 12/03/18 02:38 12/03/18 02:41 Zofran IVPUSH 12/03/18 02:39 8 mg ONETIME ONE Administration Pantoprazole Sodium 40 mg 12/03/18 02:51 12/03/18 02:54 Protonix Iv IVPUSH 12/03/18 02:52 40 mg ONETIME ONE Administration Departure - Departure Time of Disposition: 05:01 Disposition: Home, Self-Care 01 Condition: Good Clinical Impression: Atypical chest pain, Shingles rash Chronic bronchitis Qualifiers: Chronic bronchitis type: simple Qualified Code(s): J41.0 - Simple chronic bronchitis Prescriptions: Acyclovir [Zovirax] 800 mg PO 5XDAY #30 tab Instructions: Nonspecific Chest Pain, [id number] Referrals: PCP,None [Primary Care Provider] - Forms: ED Return to Work/School Form Additional Instructions: Please take the antiviral meds as recommended, please take Motrin for Chest wall pain, please f/u, come back if your symptoms get worse acutely. - My Orders Last 24 Hours: My Active Orders 12/03/18 01:38 Chest 1V Frontal [CR] Stat 12/03/18 01:39 RT Aerosol Therapy [RC] ASDIRECTED 12/03/18 01:42 Nitroglycerin [Nitrostat] 0.4 mg SL Q5M PRN 12/03/18 01:45 Sodium Chloride 0.9% [Normal Saline] 1,000 ml IV ASDIRECTED 12/03/18 02:17 EKG Documentation Completion [RC] ASDIRECTED EKG 12 Lead [EK] Routine 12/03/18 02:47 EKG Documentation Completion [RC] ASDIRECTED 12/03/18 04:20 EKG 12 Lead [EK] Routine - Assessment/Plan Last 24 Hours: My Active Orders 12/03/18 01:38 Chest 1V Frontal [CR] Stat 12/03/18 01:39 RT Aerosol Therapy [RC] ASDIRECTED 12/03/18 01:42 Nitroglycerin [Nitrostat] 0.4 mg SL Q5M PRN 12/03/18 01:45 Sodium Chloride 0.9% [Normal Saline] 1,000 ml IV ASDIRECTED 12/03/18 02:17 EKG Documentation Completion [RC] ASDIRECTED EKG 12 Lead [EK] Routine 12/03/18 02:47 EKG Documentation Completion [RC] ASDIRECTED 12/03/18 04:20 EKG 12 Lead [EK] Routine
[2018-12-03] MEDS ORDERED: Sodium Chloride 0.9% 1,000 ML IV SCH (01:45)
[2018-12-03] MEDS ORDERED: Ketorolac 30 MG/ML SDV IVPUSH ONE (01:59)
[2018-12-03] MEDS ORDERED: Ondansetron 4 MG/2 ML SDV IVPUSH ONE (02:38)
[2018-12-03] MEDS ORDERED: Acetaminophen 325 MG Tab PO ONE (02:48)
[2018-12-03] MEDS ORDERED: Pantoprazole 40 MG Vial IVPUSH ONE (02:51)
[2018-12-03] MEDS ORDERED: Morphine 2 MG/ML Syringe IVPUSH ONE (03:15)
[2018-12-03 06:00] VITALS: BP 129/85
== END 2018-12-03 05:14 | disposition home or self-care (01) ==
LOC: FB.ED 01:22
DX: J41.0 Simple chronic bronchitis (principal); R07.89 Other chest pain; B02.9 Zoster without complications; I10 Essential (primary) hypertension; F41.9 Anxiety disorder, unspecified; F32.9 Major depressive disorder, single episode, unspecified; Z88.0 Allergy status to penicillin; Z88.2 Allergy status to sulfonamides; Z79.899 Other long term (current) drug therapy
CPT/HCPCS: 36415; 71045; 80048; 84484; 85025; 85379; 85610; 93005; 94640; 96361; 96374; 96375; 99285; A9270; C9113; J1885; J2270; J2405; J7030; J7620-GY

== ENCOUNTER 2019-01-13 14:04 | Emergency (ER) | payer BC ==
--- NOTE | 2019-01-13 14:13 | EDM.PDOC ---
ED HPI GENERAL MEDICAL PROBLEM - General Stated Complaint: LACERATION Time Seen by Provider: 01/13/19 14:05 Source of Information: Reports: Patient History Limitations: Reports: No Limitations - History of Present Illness INITIAL COMMENTS - FREE TEXT/NARRATIVE: 53-year-old female who reports yesterday broke a glass when she was moving and cut herself on the top of her left hand around noon. It was a very superficial cut and she tended it at home. Today at approximately 1:50 PM, she was pushing trash into the trashcan and hit the top of her left hand against last from yesterday causing a laceration to the top of her hand. She reports that there was quite a bit of bleeding and she placed a dressing over it and then a plastic bag around. No pressure was applied to the area and it did continue to bleed until she arrived. With direct pressure, the bleeding stopped. She does report pain in the top of her hand is a stinging pain that she rates as a 7-8/ 10. It is worse with palpation and with movement. There were no other injuries. There are no other associated signs or symptoms. There are no other modifying factors. 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: Reports: Other (see below) (Nothing) Left hand Pain Score (Numeric/FACES): 10 - Related Data Allergies Allergy/AdvReac Type Severity Reaction Status Date / Time Penicillins Allergy Cannot Verified 01/13/19 14:17 Remember sulfamethoxazole Allergy Cannot Verified 01/13/19 14:17 [From Bactrim] Remember trimethoprim [From Bactrim] Allergy Cannot Verified 01/13/19 14:17 Remember Home Meds: Home Meds Gabapentin [Neurontin] 600 mg PO TID PRN 07/14/14 [History] Sertraline [Zoloft] 100 mg PO DAILY 07/14/14 [History] Amitriptyline [Elavil] 25 mg PO BEDTIME PRN 05/12/17 [History] Cyclobenzaprine HCl 10 mg BEDTIME PRN 02/21/18 [History] raNITIdine HCl [Zantac] 150 mg PO DAILY PRN 02/21/18 [History] Acyclovir [Zovirax] 800 mg PO 5XDAY #30 tab 12/03/18 [Rx] Past Medical History Cardiovascular History: Reports: Hypertension (No meds) Musculoskeletal History: Reports: Fracture Other Musculoskeletal History: hx R gt toe fx Neurological History: Reports: Migraines Psychiatric History: Reports: Anxiety, Depression, Panic Attack - Infectious Disease History Infectious Disease History: Reports: Chicken Pox, Shingles - Past Surgical History Female Surgical History: Reports: Section (3), Hysterectomy Social & Family History - Tobacco Use Smoking Status *Q: Current Some Day Smoker - Caffeine Use Caffeine Use: Reports: Coffee, Soda - Alcohol Use Alcohol Use Frequency: Monthly - Living Situation & Occupation Occupation: Employed (Works at [employer]) Review of Systems - Review of Systems Review Of Systems: See Below Constitutional: Reports: No Symptoms Eyes: Reports: No Symptoms Ears: Reports: No Symptoms Nose: Reports: No Symptoms Mouth/Throat: Reports: No Symptoms Respiratory: Reports: No Symptoms Cardiovascular: Reports: No Symptoms GI/Abdominal: Reports: No Symptoms Musculoskeletal: Reports: Other (Right hand dominant) Skin: Reports: Wound (On top of left hand) Neurological: Reports: No Symptoms ED EXAM, GENERAL - Physical Exam Exam: See Below Exam Limited By: No Limitations General Appearance: Alert, WD/WN, Mild Distress Eye Exam: Bilateral Eye: EOMI, Normal Inspection, PERRL Ears: Normal External Exam, Hearing Grossly Normal Ear Exam: Bilateral Ear: Auricle Normal Nose: Normal Inspection, Normal Mucosa, No Blood Throat/Mouth: Normal Inspection, Normal Oropharynx, Normal Voice, No Airway Compromise Head: Atraumatic, Normocephalic Neck: Normal Inspection, Supple, Non-Tender, Full Range of Motion Respiratory/Chest: No Respiratory Distress, Lungs Clear, Normal Breath Sounds, No Accessory Muscle Use Cardiovascular: Normal Peripheral Pulses, Regular Rate, Rhythm, No JVD Peripheral Pulses: 2+: Radial (L), Radial (R) GI/Abdominal: Normal Bowel Sounds, Soft, Non-Tender Back Exam: Normal Inspection Extremities: Normal Range of Motion, Normal Capillary Refill Neurological: Alert, Oriented, CN II-XII Intact, Normal Cognition, No Motor/ Sensory Deficits Skin Exam: Warm, Dry, Normal Color, No Rash, Wound/Incision (On top of left hand ) ED TRAUMA EXTREMITY PROCEDURES - Laceration/Wound Repair Left Posterior Hand Lac/Wound Length In cm: 4 (Laceration to the left dorsal hand with venous bleeding) Appearance: Subcutaneous, Mildly Contaminated Distal NVT: Neuro & Vascular Intact (There is a venous bleeder that is easily controlled with direct pressure) Anesthetic Type: Local Local Anesthesia - Lidocaine (Xylocaine): 1% Plain Local Anesthetic Volume: 5cc (There was good anesthesia and no complications.) Saline Irrigation (cc's): 500 ( Irrigatedwound with 500 mL normal saline ) Exploration/Debridement/Repair: Wound Explored, No Foreign Material Found Closed With: Sutures Suture Size: 4-0 # of Sutures: 4 Suture Type: Nylon Suture Size: 4-0 # of Sutures: 2 (2 child fetus bleeder) Repaired With: Vicryl Tetanus Status Addressed: Yes (Patient given a TD Immunization as it appears that it has been more than 5 years since her last tetanus immunization) Progress/Comments: After informed verbal consent the wound was anesthetized with 5 mL of 1% lidocaine. Wound was then irrigated with 500 mL of normal saline and the venous bleeder was ligated with 4-0 Vicryl. The skin was then closed with 4-0 nylon with a combination of simple interrupted and vertical mattress interrupted. Wound was explored prior to this and no foreign body was found. An x-ray was performed prior to this and no foreign body was seen on x-ray. There was also no fracture. The patient was complaining of moderate to severe pain and was given hydrocodone 5/325 2 of them PO. Course - Vital Signs Last Recorded V/S: Last Vital Signs Temp 37.1 C 01/13/19 14:05 Pulse 98 01/13/19 14:05 Resp 18 01/13/19 14:05 BP 128/72 01/13/19 14:05 Pulse Ox 98 01/13/19 14:05 - Orders/Labs/Meds Orders: Active Orders 24 hr Category Date Time Status Vaccines to be Administered [RC] PER UNIT ROUTINE Care 01/13/19 14:48 Ordered Hand Comp Min 3V Lt [CR] Stat Exams 01/13/19 14:13 Taken Meds: Medications Discontinued Medications Generic Name Dose Route Start Last Admin Trade Name Freq PRN Reason Stop Dose Admin Diphtheria/Tetanus/Acell Pertussis 0.5 ml 01/13/19 14:48 Adacel IM 01/13/19 14:49 .ONCE ONE Ondansetron HCl 4 mg 01/13/19 14:48 Zofran Odt PO 01/13/19 14:49 ONETIME ONE - Radiology Interpretation Free Text/Narrative:: X-ray of left hand showed no radiopaque foreign body or fracture. - Re-Assessments/Exams Free Text/Narrative Re-Assessment/Exam: 01/13/19 15:38: Patient with superficial subcutaneous laceration to the dorsum of the left hand. She did have a venous bleeder that needed ligating. She was having pain following this and was given a dose of hydrocodone in the emergency department. An appropriate supportive pressure type dressing was applied to the left hand. She will be unable to use her left hand for strenuous activity or the next 10 days. Patient also had a ring on her left fourth finger and I removed that using lubricating jelly and gentle traction. There were no apparent conjugation is associated with this. Departure - Departure Time of Disposition: 15:45 Disposition: Home, Self-Care 01 Condition: Good (Improved) Clinical Impression: Laceration of left hand Qualifiers: Encounter type: initial encounter Foreign body presence: without foreign body Qualified Code(s): S61.412A - Laceration without foreign body of left hand, initial encounter - Discharge Information Instructions: Laceration Care, Adult, [id number], Sutured Wound Care, Easy-to -Read Forms: ED Return to Work/School Form Additional Instructions: The x-ray showed no evidence of foreign body or fracture. And exploration of the wound did not show any evidence of foreign body. It is possible that there is a small foreign body still in the wound but it is doubtful. Leave the dressing intact until tomorrow and then change the dressing daily. You should keep the wound covered with any activity. No strenuous or repetitive use of your left hand for 10 days. Do not get the wound wet for 3 days. After 3 days, you may get the wound wet but do not immerse the wound in water until the sutures are out. Suture removal in 10 days. You were given a TD Immunization in the emergency department to bring her tetanus immunization status up-to-date. Back to the emergency department for marked increase in pain, redness, increased swelling, any other signs of infection or any other concerning sign or symptom. - My Orders Last 24 Hours: My Active Orders 01/13/19 14:13 Hand Comp Min 3V Lt [CR] Stat 01/13/19 14:48 Vaccines to be Administered [RC] PER UNIT ROUTINE - Assessment/Plan Last 24 Hours: My Active Orders 01/13/19 14:13 Hand Comp Min 3V Lt [CR] Stat 01/13/19 14:48 Vaccines to be Administered [RC] PER UNIT ROUTINE
[2019-01-13] MEDS ORDERED: Diphtheria,Pertussis(Acell),Tetanus Vaccine 0.5 ML SDV IM ONE (14:48)
[2019-01-13] MEDS ORDERED: Ondansetron 4 MG Tab.DIS PO ONE (14:48)
[2019-01-13] MEDS ORDERED: Acetaminophen/HYDROcodone 325-5 MG Tab PO ONE (15:36)
[2019-01-13 18:09] VITALS: BP 95/66; PULSE 88
--- NOTE | 2019-01-15 09:21 | CR ---
INDICATION: Left hand cut with glass across base of knuckles two to five. LEFT HAND: Three views of the left hand revealed no evidence of a fracture, dislocation, or other acute bone or joint abnormality. No definite radiopaque foreign bodies were identified. Slight deformity at the shaft of the 5th metacarpal likely represents an old fracture site that healed. MTDD
== END 2019-01-13 15:56 | disposition home or self-care (01) ==
LOC: FB.ED 14:04
DX: S61.412A Laceration without foreign body of left hand, initial encounter (principal); G43.909 Migraine, unspecified, not intractable, without status migrainosus; F41.9 Anxiety disorder, unspecified; F32.9 Major depressive disorder, single episode, unspecified; F41.0 Panic disorder [episodic paroxysmal anxiety]; F17.200 Nicotine dependence, unspecified, uncomplicated; Z23 Encounter for immunization; Z88.0 Allergy status to penicillin; Z88.2 Allergy status to sulfonamides; Z79.899 Other long term (current) drug therapy; W25.XXXA Contact with sharp glass, initial encounter
CPT/HCPCS: 12002; 73130; 90471; 90715; 99283; A9270; J2001; 12013

== ENCOUNTER 2019-04-30 23:22 | Emergency (ER) | payer BC ==
[2019-04-30] MEDS ORDERED: Lidocaine 2% 5 ML SDV INFILT ONE (23:23)
--- NOTE | 2019-05-01 00:02 | EDM.PDOC ---
ED HPI GENERAL MEDICAL PROBLEM - General Chief Complaint: Laceration Stated Complaint: laceration Time Seen by Provider: 05/01/19 00:02 Source of Information: Reports: Patient History Limitations: Reports: No Limitations - History of Present Illness INITIAL COMMENTS - FREE TEXT/NARRATIVE: 54-year-old female who reports she was using a utility knife to cut curtain material and she slipped and sliced her left distal medial thigh with utility knife causing a laceration. This occurred approximately 11 PM tonight. She had some bleeding from the area but that bleeding has been controlled with direct pressure. The pain is a sharp and stinging type pain that she rates as an 8/10. The pain is worse with palpation. There were no other injuries. There are no other associated signs or symptoms. There are no other modifying factors. 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 (see below) (Nothing) - Related Data Allergies Allergy/AdvReac Type Severity Reaction Status Date / Time Penicillins Allergy Cannot Verified 05/01/19 00:41 Remember sulfamethoxazole Allergy Cannot Verified 05/01/19 00:41 [From Bactrim] Remember trimethoprim [From Bactrim] Allergy Cannot Verified 05/01/19 00:41 Remember Home Meds: Home Meds Gabapentin [Neurontin] 600 mg PO TID PRN 07/14/14 [History] Sertraline [Zoloft] 100 mg PO DAILY 07/14/14 [History] Amitriptyline [Elavil] 25 mg PO BEDTIME PRN 05/12/17 [History] ClonazePAM [KlonoPIN] 0.5 mg PO ASDIRECTED PRN 05/01/19 [History] Past Medical History Cardiovascular History: Reports: Hypertension (No meds) Musculoskeletal History: Reports: Fracture Other Musculoskeletal History: hx R gt toe fx Neurological History: Reports: Migraines Psychiatric History: Reports: Anxiety, Depression, Panic Attack - Infectious Disease History Infectious Disease History: Reports: Chicken Pox, Shingles - Past Surgical History Female Surgical History: Reports: Section (3), Hysterectomy Social & Family History - Tobacco Use Smoking Status *Q: Current Every Day Smoker - Caffeine Use Caffeine Use: Reports: Coffee, Soda - Living Situation & Occupation Occupation: Employed (Works at [employer]) ED ROS GENERAL - Review of Systems Review Of Systems: See Below Constitutional: Reports: No Symptoms HEENT: Reports: No Symptoms Respiratory: Reports: No Symptoms Cardiovascular: Reports: No Symptoms Endocrine: Reports: No Symptoms GI/Abdominal: Reports: No Symptoms : Reports: No Symptoms Musculoskeletal: Reports: No Symptoms Skin: Reports: Wound (Laceration to left distal medial thigh) Neurological: Reports: No Symptoms Hematologic/Lymphatic: Reports: No Symptoms Immunologic: Reports: Other (Last tetanus immunization was in December 2018, so she is up-to-date.) ED EXAM, SKIN/RASH Exam: See Below Exam Limited By: No Limitations General Appearance: Alert, WD/WN, Mild Distress Eye Exam: Bilateral Eye: EOMI, Normal Inspection, PERRL Ears: Normal External Exam, Hearing Grossly Normal Nose: Normal Inspection, Normal Mucosa, No Blood Throat/Mouth: Normal Inspection, Normal Oropharynx, Normal Voice, No Airway Compromise Head: Atraumatic, Normocephalic Neck: Normal Inspection, Supple, Non-Tender, Full Range of Motion Respiratory/Chest: No Respiratory Distress, Lungs Clear, Normal Breath Sounds, No Accessory Muscle Use, Chest Non-Tender Cardiovascular: Normal Peripheral Pulses, Regular Rate, Rhythm, No Murmur Peripheral Pulses: 2+: Radial (L), Radial (R) GI/Abdominal: Normal Bowel Sounds, Soft, Non-Tender, No Mass Back Exam: Normal Inspection, Full Range of Motion Extremities: Normal Range of Motion, No Pedal Edema, Normal Capillary Refill Neurological: Alert, Oriented, CN II-XII Intact, Normal Cognition, No Motor/ Sensory Deficits Skin: Warm, Dry, Normal Color, No Rash Location, Skin: Lower Extremity, Left (Left, distal, medial thigh) Characteristics: Linear (Laceration that is 7.5 cm in length) Lymphatic: No Adenopathy ED SKIN PROCEDURES - Laceration/Wound Repair Left Medial Thigh Appearance: Subcutaneous, Mildly Contaminated Distal NVT: Neuro & Vascular Intact Anesthetic Type: Local Local Anesthesia - Lidocaine (Xylocaine): 2% Plain Local Anesthetic Volume: 5cc (There was good anesthesia and no complications.) Skin Prep: Chlorhexidine (Hibiciens) Saline Irrigation (cc's): 300 (The wound was irrigated with saline by the nursing staff) Exploration/Debridement/Repair: No Foreign Material Found Closed with: Sutures Lac/Wound length In cm: 7.5 Suture Size: 4-0 # of Sutures: 8 Suture Type: Prolene, Running (Simple and vertical mattress suture) Sterile Dressing Applied: Nurse Tetanus Status Addressed: Other (Patient was up-to-date with last tetanus immunization in December 2018) Complications: No Progress/Comments: Procedure performed after informed oral consent was obtained from the patient. Patient tolerated this well and there were no acute complications. Course - Vital Signs Last Recorded V/S: Last Vital Signs Temp 36.8 C 04/30/19 23:40 Pulse 100 04/30/19 23:40 Resp 18 04/30/19 23:40 BP 119/89 04/30/19 23:40 Pulse Ox 100 04/30/19 23:40 - Re-Assessments/Exams Free Text/Narrative Re-Assessment/Exam: 05/01/19 00:25: Subcutaneous wound to the left distal medial thigh that was closed using 4-0 Prolene. Suture removal in 10 days. Wound care instructions were given. Appropriate supportive dressing with David wrap was applied by the nursing staff. Precautions and reasons for return to the emergency department were discussed with the patient prior to discharge. Departure - Departure Time of Disposition: 00:30 Disposition: Home, Self-Care 01 Condition: Good (Improved) Clinical Impression: Laceration of left thigh Qualifiers: Encounter type: initial encounter Qualified Code(s): S71.112A - Laceration without foreign body, left thigh, initial encounter - Discharge Information Instructions: Laceration Care, Adult, [id number], Stitches, Tomasz, or Adhesive Wound Closure, [id number] Referrals: Angel Allen MD [Primary Care Provider] - Forms: ED Department Discharge Additional Instructions: Do not get the wound wet for 3 days. After 3 days, you may get the wound wet but do not immerse the wound in water until the sutures are removed. Suture removal in 10 days. Use the supportive dressing with the David wrap for the next few days over the thigh wound as a compression dressing. Back to the emergency department for redness, increased swelling, any signs of infection or any other concerning sign or symptom.
[2019-05-01 00:58] VITALS: BP 119/89; PULSE 100
== END 2019-05-01 00:45 | disposition home or self-care (01) ==
LOC: FB.ED 23:22
DX: S71.112A Laceration without foreign body, left thigh, initial encounter (principal); F32.9 Major depressive disorder, single episode, unspecified; I10 Essential (primary) hypertension; F17.200 Nicotine dependence, unspecified, uncomplicated; Z88.0 Allergy status to penicillin; Z88.2 Allergy status to sulfonamides; Z88.1 Allergy status to other antibiotic agents; Z79.899 Other long term (current) drug therapy; W26.0XXA Contact with knife, initial encounter; Y93.89 Activity, other specified
CPT/HCPCS: 12002; 99282; J2001

== ENCOUNTER 2019-11-07 14:32 | Emergency (ER) | payer SELFPAY ==
[2019-11-07] MEDS ORDERED: Ibuprofen 800 MG Tab PO ONE (15:01)
--- NOTE | 2019-11-07 15:06 | EDM.PDOC ---
ED HPI GENERAL MEDICAL PROBLEM - General Chief Complaint: Laceration Stated Complaint: laceration Time Seen by Provider: 11/07/19 14:56 Source of Information: Reports: Patient, RN Notes Reviewed History Limitations: Reports: No Limitations - History of Present Illness INITIAL COMMENTS - FREE TEXT/NARRATIVE: Patient presented to the ER with Laceration to the dorsal surface of the Left Hand. Patient reports that while cutting chicken 2 days ago she accidentally sustained laceration to the dorsal surface of the Left hand. Patient applied band aid to it. Today she started bleeding from the wound and decided to come to the ER foir further evaluation. Tetanus immunization is up to date. No other associated injuries. 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: Other (see below) (applied dressing on it) - Related Data Allergies Allergy/AdvReac Type Severity Reaction Status Date / Time Penicillins Allergy Cannot Verified 05/01/19 00:41 Remember sulfamethoxazole Allergy Cannot Verified 05/01/19 00:41 [From Bactrim] Remember trimethoprim [From Bactrim] Allergy Cannot Verified 05/01/19 00:41 Remember Home Meds: Home Meds Gabapentin [Neurontin] 600 mg PO TID PRN 07/14/14 [History] Sertraline [Zoloft] 100 mg PO DAILY 07/14/14 [History] Amitriptyline [Elavil] 25 mg PO BEDTIME PRN 05/12/17 [History] ClonazePAM [KlonoPIN] 0.5 mg PO ASDIRECTED PRN 05/01/19 [History] Past Medical History Cardiovascular History: Reports: Hypertension (No meds) Musculoskeletal History: Reports: Fracture Other Musculoskeletal History: hx R gt toe fx Neurological History: Reports: Migraines Psychiatric History: Reports: Anxiety, Depression, Panic Attack - Infectious Disease History Infectious Disease History: Reports: Chicken Pox, Shingles - Past Surgical History Female Surgical History: Reports: Section (3), Hysterectomy Social & Family History - Caffeine Use Caffeine Use: Reports: Coffee, Soda - Living Situation & Occupation Occupation: Employed (Works at [employer]) ED ROS GENERAL - Review of Systems Review Of Systems: Comprehensive ROS is negative, except as noted in HPI. Constitutional: Reports: No Symptoms HEENT: Reports: No Symptoms Respiratory: Reports: No Symptoms Cardiovascular: Reports: No Symptoms Endocrine: Reports: No Symptoms GI/Abdominal: Reports: No Symptoms : Reports: No Symptoms Musculoskeletal: Reports: No Symptoms, Other (Lacertion dorsum Left hand) Skin: Reports: No Symptoms Neurological: Reports: No Symptoms Psychiatric: Reports: No Symptoms Hematologic/Lymphatic: Reports: No Symptoms Immunologic: Reports: No Symptoms ED EXAM, SKIN/RASH Exam: See Below Exam Limited By: No Limitations General Appearance: Alert, WD/WN, No Apparent Distress Eye Exam: Bilateral Eye: PERRL Ears: Normal External Exam, Normal Canal, Hearing Grossly Normal Nose: Normal Inspection, Normal Mucosa Throat/Mouth: Normal Inspection, Normal Lips, Normal Teeth, Normal Oropharynx Neck: Normal Inspection, Supple, Non-Tender Respiratory/Chest: No Respiratory Distress Cardiovascular: Normal Peripheral Pulses, Regular Rate, Rhythm GI/Abdominal: Normal Bowel Sounds, Soft, Non-Tender, No Organomegaly Back Exam: Normal Inspection Extremities: Other (Left Hand -- old Lacerations dorsal surface Left hand) Neurological: Alert, Oriented, CN II-XII Intact, Normal Cognition, Normal Reflexes Psychiatric: Normal Affect, Normal Mood Skin: Warm, Dry, Intact, Normal Color, No Rash Course - Vital Signs Last Recorded V/S: Last Vital Signs Temp 36.3 C 11/07/19 14:45 Pulse 90 11/07/19 14:45 Resp 20 11/07/19 14:45 BP 118/61 11/07/19 14:45 Pulse Ox 100 11/07/19 14:45 - Orders/Labs/Meds Meds: Medications Discontinued Medications Generic Name Dose Route Start Last Admin Trade Name Brendan PRN Reason Stop Dose Admin Ibuprofen 800 mg 11/07/19 15:01 Motrin PO 11/07/19 15:02 ONETIME ONE Departure - Departure Time of Disposition: 15:14 Disposition: Home, Self-Care 01 Condition: Good Clinical Impression: Laceration of hand - Discharge Information *PRESCRIPTION DRUG MONITORING PROGRAM REVIEWED*: Not Applicable *COPY OF PRESCRIPTION DRUG MONITORING REPORT IN PATIENT ANTONY: Not Applicable Instructions: Wound Infection, Sterile Tape Wound Care, Delayed Wound Closure, Laceration Care, Adult, [id number] Forms: ED Department Discharge Additional Instructions: Follow with PCP Tylenol or Ibuprofen for pain Return if symptoms worsen Call your Physician or Return to Emergency Department if: * Your condition worsens in any way. * You develop fever greater than 100.4. * You have vomitting that does not stop with medications. * You have pain that is not controlled with medications. Sepsis Event Note - Focused Exam Vital Signs: Vital Signs Temp Pulse Resp BP Pulse Ox 11/07/19 14:45 36.3 C 90 20 118/61 100 Date Exam was Performed: 11/07/19 Time Exam was Performed: 15:07
[2019-11-07 16:13] VITALS: BP 96/42; PULSE 82
== END 2019-11-07 15:30 | disposition home or self-care (01) ==
LOC: FB.ED 14:32
DX: S61.412A Laceration without foreign body of left hand, initial encounter (principal); I10 Essential (primary) hypertension; F41.9 Anxiety disorder, unspecified; F32.9 Major depressive disorder, single episode, unspecified; Z88.1 Allergy status to other antibiotic agents; Z88.2 Allergy status to sulfonamides; Z79.899 Other long term (current) drug therapy; W45.8XXA Other foreign body or object entering through skin, initial encounter
CPT/HCPCS: 99282; A9270

== ENCOUNTER 2019-11-08 04:49 | Emergency (ER) | payer SELFPAY ==
--- NOTE | 2019-11-08 05:27 | EDM.PDOC ---
ED HPI GENERAL MEDICAL PROBLEM - General Stated Complaint: laceration Time Seen by Provider: 11/08/19 05:20 Source of Information: Reports: Patient History Limitations: Reports: No Limitations - History of Present Illness INITIAL COMMENTS - FREE TEXT/NARRATIVE: Patient presented with bleeding from an old Laceration whish she accidentally sustained 3 days ago. Woke up this morning with bleeding from the laceration on the dorsal surface of the Left hand. She was seen yesterday in the ER and no immediate indication for sutures was noted at the time. Wound now appears deeper and actively bleeding but patient denied inflicting any injury to the Left hand or picking at the old scab. Presented to the ER for further evluation Duration: Day(s): (3 days) - Related Data Allergies Allergy/AdvReac Type Severity Reaction Status Date / Time Penicillins Allergy Cannot Verified 11/07/19 16:09 Remember sulfamethoxazole Allergy Cannot Verified 11/07/19 16:09 [From Bactrim] Remember trimethoprim [From Bactrim] Allergy Cannot Verified 11/07/19 16:09 Remember Home Meds: Home Meds Gabapentin [Neurontin] 600 mg PO TID PRN 07/14/14 [History] Sertraline [Zoloft] 100 mg PO DAILY 07/14/14 [History] Amitriptyline [Elavil] 25 mg PO BEDTIME PRN 05/12/17 [History] ClonazePAM [KlonoPIN] 0.5 mg PO ASDIRECTED PRN 05/01/19 [History] Acetaminophen/Codeine [Tylenol with Codeine No.3 300MG/30MG] 1 tab PO Q6HR PRN 11/07/19 [History] Past Medical History Cardiovascular History: Reports: Hypertension (No meds) Musculoskeletal History: Reports: Fracture Other Musculoskeletal History: hx R gt toe fx Neurological History: Reports: Migraines Psychiatric History: Reports: Anxiety, Depression, Panic Attack - Infectious Disease History Infectious Disease History: Reports: Chicken Pox, Shingles - Past Surgical History Female Surgical History: Reports: Section (3), Hysterectomy Social & Family History - Caffeine Use Caffeine Use: Reports: Coffee, Soda Caffeine Use Comment: uses decaf - Living Situation & Occupation Occupation: Employed (Works at [employer]) Review of Systems - Review of Systems Review Of Systems: See Below Constitutional: Reports: No Symptoms Eyes: Reports: No Symptoms Ears: Reports: No Symptoms Nose: Reports: No Symptoms Mouth/Throat: Reports: No Symptoms Respiratory: Reports: No Symptoms Cardiovascular: Reports: No Symptoms GI/Abdominal: Reports: No Symptoms Genitourinary: Reports: No Symptoms Musculoskeletal: Reports: Other (left hand injury/Laceration) Skin: Reports: No Symptoms Neurological: Reports: No Symptoms Psychiatric: Reports: No Symptoms ED EXAM, GENERAL - Physical Exam Exam: See Below Exam Limited By: No Limitations General Appearance: Alert, WD/WN, No Apparent Distress Ears: Normal External Exam, Normal Canal, Hearing Grossly Normal Nose: Normal Inspection, Normal Mucosa, No Blood Throat/Mouth: Normal Inspection, Normal Lips, Normal Oropharynx, Normal Voice Head: Atraumatic, Normocephalic Neck: Normal Inspection, Supple, Non-Tender, Full Range of Motion Respiratory/Chest: No Respiratory Distress, Lungs Clear, Normal Breath Sounds, No Accessory Muscle Use Cardiovascular: Normal Peripheral Pulses, Regular Rate, Rhythm, No Edema GI/Abdominal: Normal Bowel Sounds Back Exam: Normal Inspection, Full Range of Motion Extremities: Normal Inspection, Normal Range of Motion, Non-Tender, Other ( Dorsum Left hand -- Laceration dorsal surface, actively bleeding (seems fresh today compared to yesterday without scab)) ED TRAUMA EXTREMITY PROCEDURES - Laceration/Wound Repair Left Hand Appearance: Superficial, Clean Distal NVT: Neuro & Vascular Intact Anesthetic Type: Local Local Anesthesia - Lidocaine (Xylocaine): 1% Plain Local Anesthetic Volume: 1cc Exploration/Debridement/Repair: Wound Explored Closed With: Sutures Suture Size: Other (ethilon) # of Sutures: 3 Suture Type: Interrupted Complication Description: No immediate complications noted Progress/Comments: Wound was cleaned and irrigated. Wound repair was done please refer to procedure note. Patient tolerated procedure well and was discharged in stable condition. Departure - Departure Time of Disposition: 05:29 Disposition: Home, Self-Care 01 Clinical Impression: Laceration of hand Qualifiers: Encounter type: initial encounter Foreign body presence: without foreign body Laterality: left Qualified Code(s): S61.412A - Laceration without foreign body of left hand, initial encounter - Discharge Information Referrals: Shilpi Aguirre PA-C [Primary Care Provider] - Additional Instructions: Follow with PCP Sutures out in 1 week Tylenol for pain Return if symptoms worsenCall your Physician or Return to Emergency Department if: * Your condition worsens in any way. * You develop fever greater than 100.4. * You have vomitting that does not stop with medications. * You have pain that is not controlled with medications. Sepsis Event Note - Focused Exam Date Exam was Performed: 11/08/19 Time Exam was Performed: 05:29 - Problem List & Annotations (1) Laceration of left hand SNOMED Code(s): 578381672 Code(s): S61.412A - LACERATION WITHOUT FOREIGN BODY OF LEFT HAND, INIT ENCNTR Status: Acute Current Visit: No Qualifiers: Encounter type: initial encounter Foreign body presence: without foreign body Qualified Code(s): S61.412A - Laceration without foreign body of left hand, initial encounter - Problem List Review Problem List Initiated/Reviewed/Updated: Yes
[2019-11-08] MEDS: Acetaminophen 325 MG Tab PO ONE (05:40)
[2019-11-08] MEDS: Acetaminophen 325 MG Tab ONE (06:16)
[2019-11-08 07:23] VITALS: BP 101/64; PULSE 88
== END 2019-11-08 05:45 | disposition home or self-care (01) ==
LOC: FB.ED 04:49
DX: S61.412A Laceration without foreign body of left hand, initial encounter (principal); I10 Essential (primary) hypertension; F41.9 Anxiety disorder, unspecified; F32.9 Major depressive disorder, single episode, unspecified; Z79.899 Other long term (current) drug therapy; Z88.0 Allergy status to penicillin; Z88.2 Allergy status to sulfonamides; X58.XXXA Exposure to other specified factors, initial encounter
CPT/HCPCS: 12001; 99282; A9270; J2001

== ENCOUNTER 2020-01-20 09:07 | Day surgery (SDC) | payer BC ==
[2020-01-20] MEDS ORDERED: Propofol 200 MG/20 ML SDV IV ONE (09:08)
[2020-01-20] MEDS ORDERED: Lidocaine 2% 5 ML SDV INJECT ONE (09:08)
[2020-01-20] MEDS ORDERED: Lactated Ringers 1,000 ML IV SCH (09:45)
[2020-01-20] MEDS ORDERED: Sodium Chloride 0.9% 10 ML Syringe FLUSH PRN (09:45)
--- NOTE | 2020-01-20 11:17 | PCM.OPNOTE ---
- General Post-Op/Procedure Note Date of Surgery/Procedure: 01/20/20 Operative Procedure(s): egd with bx. c scope Findings: mild gastritis gastric polyp normal c scope Pre Op Diagnosis: ruq abd pain Post-Op Diagnosis: mild gastritis. gastric polyp. normal c scope Anesthesia Technique: MAC Primary Surgeon: Kojo Crow Anesthesia Provider: Angel Nagel Pathology: gastric polyp and mucosa Complications: None Condition: Good Free Text/Narrative:: see dictation
[2020-01-20 14:08] VITALS: BP 116/58; PULSE 62
--- NOTE | 2020-01-20 14:32 | OR ---
DATE OF OPERATION: 01/20/2020 SURGEON: Kojo Crow MD PROCEDURES PERFORMED: Esophagogastroduodenoscopy with cold forceps biopsy and colonoscopy. PREOPERATIVE DIAGNOSIS: History of right upper quadrant abdominal pain. POSTOPERATIVE DIAGNOSES: Gastric polyp, mild gastritis, and normal colonoscopy. INDICATIONS FOR PROCEDURE: This is a 54-year-old white female with the above- mentioned history of complaint. Her biliary tree workup to date has been negative. She was offered and accepted an EGD, as well as colonoscopy, to evaluate for possible etiology of her condition. DESCRIPTION OF OPERATION: After an excellent IV sedation was administered, the bite block was inserted. The flexible endoscope was passed without difficulty down the patient's esophagus into the stomach. The stomach was insufflated. Scope passed to the second portion of the duodenum through the pylorus and then slowly withdrawn. The following findings were noted: Duodenum was unremarkable. Stomach demonstrated some potential gastritis. Random biopsies were taken, and along the greater curve, there was a small polypoid lesion, which was biopsied with cold biopsy forceps in toto and passed off the field. The esophagus itself was unremarkable. Attention was then turned to the patient's colon. Digital rectal exam was performed. No marked abnormality was noted. Flexible colonoscope was inserted and advanced to the cecum. Prep was excellent. The following findings were noted: Ascending colon, unremarkable. Transverse colon, unremarkable. Descending colon, unremarkable. Sigmoid and rectum, unremarkable. The patient tolerated the procedure well. Results will be sent to the patient via letter. /[id number] /MODL
== END 2020-01-20 12:20 | disposition home or self-care (01) ==
LOC: FB.SDS 09:07
PROVIDERS: ATTEND Surgery
DX: K29.50 Unspecified chronic gastritis without bleeding (principal); K31.7 Polyp of stomach and duodenum; D50.0 Iron deficiency anemia secondary to blood loss (chronic); K31.89 Other diseases of stomach and duodenum; G56.00 Carpal tunnel syndrome, unspecified upper limb; F33.9 Major depressive disorder, recurrent, unspecified; F41.9 Anxiety disorder, unspecified; Z88.0 Allergy status to penicillin; Z88.1 Allergy status to other antibiotic agents; Z79.899 Other long term (current) drug therapy
CPT/HCPCS: 43239; 45378; J2001; J2704; J7120

== ENCOUNTER 2020-03-29 16:45 | Emergency (ER) | payer BC ==
[2020-03-29] MEDS ORDERED: traMADol 50 MG Tab PO ONE (16:46)
--- NOTE | 2020-03-29 18:00 | EDM.PDOC ---
ED HPI GENERAL MEDICAL PROBLEM - General Chief Complaint: Head Injury Stated Complaint: FACE Time Seen by Provider: 03/29/20 16:50 Source of Information: Reports: Patient History Limitations: Reports: No Limitations - History of Present Illness INITIAL COMMENTS - FREE TEXT/NARRATIVE: Patient presented to the ED because of head and facial injury. She was sitting at the edge of the bed,fell asleep and fell. She hit her face on the side table. There was no LOC after the fall. She also c/o chest pain prior to the fall which went away on it's own. L side of face & nose Pain Score (Numeric/FACES): 9 - Related Data Allergies Allergy/AdvReac Type Severity Reaction Status Date / Time Penicillins Allergy Rash Verified 03/29/20 17:06 sulfamethoxazole Allergy Shortness Verified 03/29/20 17:06 [From Bactrim] of Breath trimethoprim [From Bactrim] Allergy Shortness Verified 03/29/20 17:06 of Breath Home Meds: Home Meds Gabapentin [Neurontin] 800 mg PO QID 07/14/14 [History] ClonazePAM [KlonoPIN] 0.5 mg PO BID PRN 05/01/19 [History] Albuterol [Proventil HFA] 2 puff INH Q4H PRN 01/19/20 [History] Cyclobenzaprine [Flexeril] 10 mg PO BID PRN 01/19/20 [History] Prazosin HCl [Prazosin] 2 mg PO BEDTIME 01/19/20 [History] Sertraline [Zoloft] 200 mg PO DAILY 01/19/20 [History] Levothyroxine 25 mcg PO ACBREAKFAST 03/29/20 [History] Mirtazapine 7.5 mg BEDTIME 03/29/20 [History] Pantoprazole Sodium [Protonix] 40 mg PO DAILY 03/29/20 [History] traMADol [Ultram] 100 mg PO Q8H PRN #15 tab 03/29/20 [Rx] Past Medical History - Past Health History Medical/Surgical History: Denies Medical/Surgical History HEENT History: Reports: None Cardiovascular History: Reports: Angina, Hypertension, Other (See Below) Other Cardiovascular History: CHEST PAIN Respiratory History: Reports: None Genitourinary History: Reports: None 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: Musculoskeletal History: Reports: Fracture Other Musculoskeletal History: hx R gt toe fx Neurological History: Reports: Migraines, Other (See Below) Other Neuro History: HYPERSOMNIA Psychiatric History: Reports: Addiction, Anxiety, Depression, Panic Attack, Other (See Below) Other Psychiatric History: ETOH USE DISORDER Endocrine/Metabolic History: Reports: None Hematologic History: Reports: Iron Deficiency Immunologic History: Reports: None Oncologic (Cancer) History: Reports: None Dermatologic History: Reports: None - Infectious Disease History Infectious Disease History: Reports: Chicken Pox, Shingles - Past Surgical History Head Surgeries/Procedures: Reports: None HEENT Surgical History: Reports: Tonsillectomy Cardiovascular Surgical History: Reports: None Respiratory Surgical History: Reports: None GI Surgical History: Reports: Appendectomy Female Surgical History: Reports: Section, Hysterectomy Other Female Surgeries/Procedures: CS x 3, total hyst Endocrine Surgical History: Reports: None Musculoskeletal Surgical History: Reports: Carpal Tunnel, ORIF Other Musculoskeletal Surgeries/Procedures:: ORIF R gt toe. R) BUNIONECTOMY. L) BRANCHIAL LEFT CYST EXCISION. BILAT CARPAL TUNNEL RELEASE Oncologic Surgical History: Reports: None Dermatological Surgical History: Reports: Other (See Below) Social & Family History - Caffeine Use Caffeine Use: Reports: Coffee, Soda Caffeine Use Comment: uses decaf - Living Situation & Occupation Occupation: Employed (Works at [employer]) ED ROS GENERAL - Review of Systems Review Of Systems: See Below Constitutional: Reports: No Symptoms HEENT: Reports: No Symptoms, Other (facial pain) Respiratory: Reports: No Symptoms Cardiovascular: Reports: Chest Pain Endocrine: Reports: No Symptoms GI/Abdominal: Reports: No Symptoms : Reports: No Symptoms Musculoskeletal: Reports: No Symptoms Skin: Reports: No Symptoms ED EXAM, HEAD INJURY - Physical Exam Exam: See Below Exam Limited By: No Limitations General Appearance: Alert, No Apparent Distress Head: Other (bruising on the cheek and nose-left.) Eyes: Bilateral Eye: PERRL Ears: Normal External Exam, Normal Canal, Hearing Grossly Normal, Normal TMs Nose: Normal Inspection, Normal Mucousa, No Blood Throat/Mouth: Normal Inspection, Normal Lips, Normal Teeth, Normal Gums Neck: Non-Tender, Full Range of Motion, Normal Alignment, Normal Inspection Respiratory: No Respiratory Distress, Lungs Clear, Normal Breath Sounds, No Accessory Muscle Use, Chest Non-Tender Cardiovascular: Normal Peripheral Pulses, Regular Rate, Rhythm, No Edema, No Gallop GI/Abdominal Exam: Normal Bowel Sounds, Soft, Non-Tender, No Organomegaly Back Exam: Normal Inspection, Full Range of Motion Extremities: Normal Inspection, Normal Range of Motion, Non-Tender 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, No Motor/Sensory Deficits, Alert, Normal Mood/Affect, Oriented x 3 Course - Vital Signs Text/Narrative:: Labs/EKG/Head and Facial CT result was discussed with patient ibuprofen 800 mg and tylenol 1000 mg po x1 Last Recorded V/S: Last Vital Signs Temp 36.5 C 03/29/20 16:45 Pulse 74 03/29/20 16:45 Resp 18 03/29/20 16:45 BP 144/58 H 03/29/20 16:45 Pulse Ox 97 03/29/20 16:45 - Orders/Labs/Meds Orders: Active Orders 24 hr Category Date Time Status Chest 2V [CR] Stat Exams 03/29/20 17:06 Taken Head wo Cont [CT] Stat Exams 03/29/20 17:12 Taken Max Facial Sinus wo Cont [CT] Stat Exams 03/29/20 17:13 Taken UA W/MICROSCOPIC [URIN] Stat Lab 03/29/20 17:00 Ordered EKG 12 Lead [EK] Routine Ther 03/29/20 17:00 Ordered Labs: Laboratory Tests 03/29/20 03/29/20 03/29/20 Range/Units 17:00 17:00 17:00 WBC 5.7 (4.5-12.0) X10-3/uL RBC 4.40 (3.23-5.20) x10(6)uL Hgb 10.6 L (11.5-15.5) g/dL Hct 32.1 (30.0-51.3) % MCV 72.8 L (80-96) fL MCH 24.2 L (27.7-33.6) pg MCHC 33.2 (32.2-35.4) g/dL RDW 27.8 H (11.5-15.5) % Plt Count 340 (125-369) X10(3)uL MPV 8.4 (7.4-10.4) fL Add Manual Diff Yes Neutrophils % (Manual) 47 (46-82) % Lymphocytes % (Manual) 40 H (13-37) % Monocytes % (Manual) 11 (4-12) % Eosinophils % (Manual) 1 (0-5) % Basophils % (Manual) 1 (0-2) % Anisocytosis Few Microcytosis Few Sodium 143 (135-145) mmol/L Potassium 4.0 (3.5-5.3) mmol/L Chloride 105 (100-110) mmol/L Carbon Dioxide 31 (21-32) mmol/L BUN 12 (7-18) mg/dL Creatinine 0.8 (0.55-1.02) mg/dL Est Cr Clr Drug Dosing TNP Estimated GFR (MDRD) > 60 (>60) BUN/Creatinine Ratio 15.0 (9-20) Glucose 93 (80-116) mg/dL Calcium 8.8 (8.6-10.2) mg/dL Total Bilirubin 0.3 (0.1-1.3) mg/dL AST 22 (5-25) IU/L ALT 21 (12-36) U/L Alkaline Phosphatase 63 (56-112) IU/L Troponin I 5.7 (4.0-60.3) pg/mL Total Protein 7.3 (6.0-8.0) g/dL Albumin 3.5 (3.5-5.2) g/dL Globulin 3.8 g/dL Albumin/Globulin Ratio 0.9 Meds: Medications Discontinued Medications Generic Name Dose Route Start Last Admin Trade Name Freq PRN Reason Stop Dose Admin Acetaminophen 1,000 mg 03/29/20 18:03 03/29/20 18:18 Tylenol Extra Strength PO 03/29/20 18:04 1,000 mg ONETIME ONE Administration Ibuprofen 800 mg 03/29/20 18:03 03/29/20 18:18 Motrin PO 03/29/20 18:04 800 mg ONETIME ONE Administration Departure - Departure Time of Disposition: 18:40 Disposition: Home, Self-Care 01 Condition: Good Clinical Impression: Closed head injury, Atypical chest pain - Discharge Information Prescriptions: traMADol [Ultram] 100 mg PO Q8H PRN #15 tab PRN Reason: Pain Instructions: Tramadol tablets, Nonspecific Chest Pain, Adult, Head Injury, Adult, [id number] Referrals: Shilpi Aguirre PA-C [Primary Care Provider] - Forms: ED Department Discharge Additional Instructions: Please read discharge instructions on closed head injury and atypical chest pain Take aleve 2 tablets twice daily for 7 days Tramadol 100 mg every 8 hours as needed for pain Follow up as needed Sepsis Event Note (ED) - Evaluation Sepsis Screening Result: No Definite Risk - Focused Exam Vital Signs: Vital Signs Temp Pulse Resp BP Pulse Ox 03/29/20 16:45 36.5 C 74 18 144/58 H 97 - My Orders Last 24 Hours: My Active Orders 03/29/20 17:00 UA W/MICROSCOPIC [URIN] Stat EKG 12 Lead [EK] Routine 03/29/20 17:06 Chest 2V [CR] Stat 03/29/20 17:12 Head wo Cont [CT] Stat 03/29/20 17:13 Max Facial Sinus wo Cont [CT] Stat - Assessment/Plan Last 24 Hours: My Active Orders 03/29/20 17:00 UA W/MICROSCOPIC [URIN] Stat EKG 12 Lead [EK] Routine 03/29/20 17:06 Chest 2V [CR] Stat 03/29/20 17:12 Head wo Cont [CT] Stat 03/29/20 17:13 Max Facial Sinus wo Cont [CT] Stat
[2020-03-29] MEDS ORDERED: Acetaminophen 500 MG Tab PO ONE (18:03)
[2020-03-29] MEDS ORDERED: Ibuprofen 800 MG Tab PO ONE (18:03)
[2020-03-29 20:33] VITALS: BP 151/59; PULSE 66
--- NOTE | 2020-03-30 11:57 | CR ---
INDICATION: Chest pain. CHEST TWO VIEWS: PA and lateral views of the chest 03/29/20 were compared with 12/03/18 and 02/20/11. The heart appears to be slightly increased in size compared with 2010, is not grossly enlarged however. The aorta is slightly tortuous with minimal calcification suggested at the arch. Overlying EKG leads are noted. Pulmonary markings overall appear similar to the previous examinations with the addition of a few extra markings at the left lung base which may represent minimal fibrosis and/or linear atelectasis. A definite active infiltrate or effusion was not identified. Dextroconvex scoliosis of mild degree is noted in the mid thoracic spine. IMPRESSION: No definite acute process. Slightly increased heart size is suggested. MTDD
== END 2020-03-29 18:36 | disposition home or self-care (01) ==
LOC: FB.ED 16:45
DX: S09.90XA Unspecified injury of head, initial encounter (principal); S00.83XA Contusion of other part of head, initial encounter; S00.33XA Contusion of nose, initial encounter; R07.89 Other chest pain; I10 Essential (primary) hypertension; F41.9 Anxiety disorder, unspecified; F32.9 Major depressive disorder, single episode, unspecified; Z98.890 Other specified postprocedural states; Z90.710 Acquired absence of both cervix and uterus; Z88.0 Allergy status to penicillin; Z88.2 Allergy status to sulfonamides; Z88.1 Allergy status to other antibiotic agents; Z79.899 Other long term (current) drug therapy; W06.XXXA Fall from bed, initial encounter
CPT/HCPCS: 36415; 70450; 70486; 71046; 80053; 84484; 85025; 93005; 99285; A9270; 99283

== ENCOUNTER 2020-04-02 17:40 | Emergency (ER) | payer BC ==
[2020-04-02 19:08] LABS: ACETAMINOPHEN < 2 ug/mL (<2)
[2020-04-02] MEDS ORDERED: Lidocaine/EPINEPHrine/Tetracaine Soln 5 ML Each TOP ONE ×2 (19:43)
--- NOTE | 2020-04-02 21:22 | EDM.PDOCBH ---
ED HPI GENERAL MEDICAL PROBLEM - General Chief Complaint: Behavioral/Psych Stated Complaint: Anxiety,Depression Time Seen by Provider: 04/02/20 17:40 Source of Information: Reports: Patient History Limitations: Reports: No Limitations - History of Present Illness INITIAL COMMENTS - FREE TEXT/NARRATIVE: Patient presented to the ED because of feeling down for the past 1 month. She is taking zoloft for her anxiety and depression. She is just stressed out lately because her lost his job 7 months ago and her daughter was diagnosed with breast cancer and underwent bilateral mastectomy. She denies having suicidal thoughts, she said it was just stupid for me to cut my wrist. Denies any homicidal thoughts. She cut her right wrist and sustained a 7 cm wound and the left wrist is 8 cm. - Related Data Allergies Allergy/AdvReac Type Severity Reaction Status Date / Time Penicillins Allergy Rash Verified 04/02/20 18:00 sulfamethoxazole Allergy Shortness Verified 04/02/20 18:00 [From Bactrim] of Breath trimethoprim [From Bactrim] Allergy Shortness Verified 04/02/20 18:00 of Breath Home Meds: Home Meds Gabapentin [Neurontin] 800 mg PO QID 07/14/14 [History] ClonazePAM [KlonoPIN] 0.5 mg PO BID PRN 05/01/19 [History] Albuterol [Proventil HFA] 2 puff INH Q4H PRN 01/19/20 [History] Cyclobenzaprine [Flexeril] 10 mg PO BID PRN 01/19/20 [History] Prazosin HCl [Prazosin] 2 mg PO BEDTIME 01/19/20 [History] Sertraline [Zoloft] 200 mg PO DAILY 01/19/20 [History] Levothyroxine 25 mcg PO ACBREAKFAST 03/29/20 [History] Mirtazapine 7.5 mg BEDTIME 03/29/20 [History] Pantoprazole Sodium [Protonix] 40 mg PO DAILY 03/29/20 [History] traMADol [Ultram] 100 mg PO Q8H PRN #15 tab 03/29/20 [Rx] Past Medical History - Past Health History Medical/Surgical History: Denies Medical/Surgical History HEENT History: Reports: None Cardiovascular History: Reports: Angina, Hypertension, Other (See Below) Other Cardiovascular History: CHEST PAIN Respiratory History: Reports: None Gastrointestinal History: Reports: GERD Genitourinary History: Reports: None 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: Musculoskeletal History: Reports: Fracture Other Musculoskeletal History: hx R gt toe fx Neurological History: Reports: Migraines, Other (See Below) Other Neuro History: HYPERSOMNIA Psychiatric History: Reports: Addiction, Anxiety, Depression, Panic Attack, Other (See Below) Other Psychiatric History: ETOH USE DISORDER Endocrine/Metabolic History: Reports: None Hematologic History: Reports: Iron Deficiency Immunologic History: Reports: None Oncologic (Cancer) History: Reports: None Dermatologic History: Reports: None - Infectious Disease History Infectious Disease History: Reports: Chicken Pox, Shingles - Past Surgical History Head Surgeries/Procedures: Reports: None HEENT Surgical History: Reports: Tonsillectomy Cardiovascular Surgical History: Reports: None Respiratory Surgical History: Reports: None GI Surgical History: Reports: Appendectomy Female Surgical History: Reports: Section, Hysterectomy Other Female Surgeries/Procedures: CS x 3, total hyst Endocrine Surgical History: Reports: None Musculoskeletal Surgical History: Reports: Carpal Tunnel, ORIF Other Musculoskeletal Surgeries/Procedures:: ORIF R gt toe. R) BUNIONECTOMY. L) BRANCHIAL LEFT CYST EXCISION. BILAT CARPAL TUNNEL RELEASE Oncologic Surgical History: Reports: None Dermatological Surgical History: Reports: Other (See Below) Social & Family History - Family History Family Medical History: Noncontributory - Tobacco Use Smoking Status *Q: Current Every Day Smoker Years of Tobacco use: 40 Packs/Tins Daily: 1 - Caffeine Use Caffeine Use: Reports: Coffee Caffeine Use Comment: uses decaf - Recreational Drug Use Recreational Drug Use: No - Living Situation & Occupation Occupation: Employed (Works at [employer]) ED ROS GENERAL - Review of Systems Review Of Systems: See Below Constitutional: Reports: No Symptoms HEENT: Reports: No Symptoms Respiratory: Reports: No Symptoms Cardiovascular: Reports: No Symptoms Endocrine: Reports: No Symptoms GI/Abdominal: Reports: No Symptoms : Reports: No Symptoms Musculoskeletal: Reports: No Symptoms Skin: Reports: Wound Psychiatric: Reports: No Symptoms ED EXAM, BEHAVIORAL HEALTH - Physical Exam Exam: See Below Exam Limited By: No Limitations General Appearance: Alert, No Apparent Distress Eye Exam: Bilateral Eye: PERRL Ears: Normal External Exam, Normal Canal Nose: Normal Inspection, Normal Mucosa Throat/Mouth: Normal Inspection, Normal Lips, Normal Teeth Head: Atraumatic, Normocephalic Neck: Normal Inspection, Supple, Non-Tender, Full Range of Motion Respiratory/Chest: No Respiratory Distress, Lungs Clear, Normal Breath Sounds Cardiovascular: Normal Peripheral Pulses, Regular Rate, Rhythm, No Edema, No Gallop, No JVD, No Murmur GI/Abdominal: Normal Bowel Sounds, Soft, Non-Tender, No Organomegaly, No Distention, No Abnormal Bruit, No Mass, Pelvis Stable Back Exam: Normal Inspection, Full Range of Motion Extremities: Normal Inspection, Increased Warmth Neurological: Alert, Normal Mood/Affect, CN II-XII Intact, Normal Cognition Psychiatric: Depressed Mood, Tearful ED LACERATION PROCEDURES - Laceration/Wound Repair Right Wrist Lac/wound length in cm: 7 Appearance: Superficial, Clean Distal NVT: Neuro & Vascular Intact Local Anesthesia - Lidocaine (Xylocaine): 1% Plain Local Anesthetic Volume: 2cc Skin Prep: Chlorhexidine (Hibiciens) Closed with: Sutures Suture Size: 3-0 # of Sutures: 7 Suture Type: Nylon Left Wrist Lac/wound length in cm: 8 Appearance: Superficial Distal NVT: Neuro & Vascular Intact Local Anesthesia - Lidocaine (Xylocaine): 1% Plain Local Anesthetic Volume: 2cc Skin Prep: Chlorhexidine (Hibiciens) Closed with: Sutures Suture Size: 3-0 # of Sutures: 8 Suture Type: Nylon COURSE, BEHAVIORAL HEALTH COMP - Course Vital Signs: Last Vital Signs Temp 36.8 C 04/02/20 17:40 Pulse 108 H 04/02/20 17:40 Resp 16 04/02/20 17:40 BP 132/99 H 04/02/20 17:40 Pulse Ox 98 04/02/20 17:40 UTD with immunization Ibuprofen 800 mg with tylenol 1000 po Orders, Labs, Meds: Laboratory Tests 04/02/20 04/02/20 04/02/20 Range/Units 18:20 18:20 18:40 WBC (4.5-12.0) X10-3/uL RBC (3.23-5.20) x10(6)uL Hgb (11.5-15.5) g/dL Hct (30.0-51.3) % MCV (80-96) fL MCH (27.7-33.6) pg MCHC (32.2-35.4) g/dL RDW (11.5-15.5) % Plt Count (125-369) X10(3)uL Sodium (135-145) mmol/L Potassium (3.5-5.3) mmol/L Chloride (100-110) mmol/L Carbon Dioxide (21-32) mmol/L BUN (7-18) mg/dL Creatinine (0.55-1.02) mg/dL Est Cr Clr Drug Dosing mL/min Estimated GFR (MDRD) (>60) BUN/Creatinine Ratio (9-20) Glucose (80-116) mg/dL Calcium (8.6-10.2) mg/dL Total Bilirubin (0.1-1.3) mg/dL AST (5-25) IU/L ALT (12-36) U/L Alkaline Phosphatase (56-112) IU/L Total Protein (6.0-8.0) g/dL Albumin (3.5-5.2) g/dL Globulin g/dL Albumin/Globulin Ratio TSH, Ultra Sensitive 9.56 H* (0.36-3.74) IU/mL Urine Color Yellow (YELLOW) Urine Appearance Clear (CLEAR) Urine pH 6.0 (5.0-6.5) Ur Specific [place] 1.005 L (1.010-1.025) Urine Protein Negative (NEGATIVE) mg/dL Urine Glucose (UA) Normal (NORMAL) mg/dL Urine Ketones Negative (NEGATIVE) mg/dL Urine Occult Blood Negative (NEGATIVE) Urine Nitrite Negative (NEGATIVE) Urine Bilirubin Negative (NEGATIVE) Urine Urobilinogen Normal (NEGATIVE) mg/dL Ur Leukocyte Esterase Negative (NEGATIVE) Urine RBC 0-5 (0-5) Urine WBC 0-5 (0-5) Ur Squamous Epith Cells Occasional (NS,R,O) Urine Bacteria Rare H (NS) Salicylates (<2.8) mg/dL Urine Opiates Screen Negative (NEGATIVE) Ur Oxycodone Screen Negative (NEGATIVE) Ur Propoxyphene Screen Negative (NEGATIVE) Acetaminophen (<2) ug/mL Ur Barbituates Screen Negative (NEGATIVE) Ur Tricyclics Screen Positive H (NEGATIVE) Ur Phencyclidine Scrn Negative (NEGATIVE) Ur Amphetamine Screen Negative (NEGATIVE) Urine MDMA Screen Negative (NEGATIVE) U Benzodiazepines Scrn Negative (NEGATIVE) U Cocaine Metab Screen Negative (NEGATIVE) U Marijuana (THC) Screen Negative (NEGATIVE) Ethyl Alcohol 0.08 H (<0.03) % 04/02/20 04/02/20 04/02/20 Range/Units 18:40 18:40 18:40 WBC 8.4 (4.5-12.0) X10-3/uL RBC 5.06 (3.23-5.20) x10(6)uL Hgb 11.8 (11.5-15.5) g/dL Hct 36.9 (30.0-51.3) % MCV 72.8 L (80-96) fL MCH 23.3 L (27.7-33.6) pg MCHC 32.0 L (32.2-35.4) g/dL RDW 27.7 H (11.5-15.5) % Plt Count 358 (125-369) X10(3)uL Sodium 141 (135-145) mmol/L Potassium 3.6 (3.5-5.3) mmol/L Chloride 104 (100-110) mmol/L Carbon Dioxide 23 (21-32) mmol/L BUN 10 (7-18) mg/dL Creatinine 0.7 (0.55-1.02) mg/dL Est Cr Clr Drug Dosing 64.46 mL/min Estimated GFR (MDRD) > 60 (>60) BUN/Creatinine Ratio 14.3 (9-20) Glucose 92 (80-116) mg/dL Calcium 8.5 L (8.6-10.2) mg/dL Total Bilirubin 0.2 (0.1-1.3) mg/dL AST 22 (5-25) IU/L ALT 21 (12-36) U/L Alkaline Phosphatase 66 (56-112) IU/L Total Protein 8.0 (6.0-8.0) g/dL Albumin 3.8 (3.5-5.2) g/dL Globulin 4.2 g/dL Albumin/Globulin Ratio 0.9 TSH, Ultra Sensitive (0.36-3.74) IU/mL Urine Color (YELLOW) Urine Appearance (CLEAR) Urine pH (5.0-6.5) Ur Specific [place] (1.010-1.025) Urine Protein (NEGATIVE) mg/dL Urine Glucose (UA) (NORMAL) mg/dL Urine Ketones (NEGATIVE) mg/dL Urine Occult Blood (NEGATIVE) Urine Nitrite (NEGATIVE) Urine Bilirubin (NEGATIVE) Urine Urobilinogen (NEGATIVE) mg/dL Ur Leukocyte Esterase (NEGATIVE) Urine RBC (0-5) Urine WBC (0-5) Ur Squamous Epith Cells (NS,R,O) Urine Bacteria (NS) Salicylates 4.8 (<2.8) mg/dL Urine Opiates Screen (NEGATIVE) Ur Oxycodone Screen (NEGATIVE) Ur Propoxyphene Screen (NEGATIVE) Acetaminophen < 2 L (<2) ug/mL Ur Barbituates Screen (NEGATIVE) Ur Tricyclics Screen (NEGATIVE) Ur Phencyclidine Scrn (NEGATIVE) Ur Amphetamine Screen (NEGATIVE) Urine MDMA Screen (NEGATIVE) U Benzodiazepines Scrn (NEGATIVE) U Cocaine Metab Screen (NEGATIVE) U Marijuana (THC) Screen (NEGATIVE) Ethyl Alcohol (<0.03) % Medications Discontinued Medications Generic Name Dose Route Start Last Admin Trade Name Freq PRN Reason Stop Dose Admin Acetaminophen 1,000 mg 04/02/20 21:26 04/02/20 21:32 Tylenol Extra Strength PO 04/02/20 21:27 1,000 mg ONETIME ONE Administration Ibuprofen 800 mg 04/02/20 21:26 04/02/20 21:32 Motrin PO 04/02/20 21:27 800 mg ONETIME ONE Administration Lidocaine/Tetracaine 5 ml 04/02/20 19:43 Let Soln TOP 04/02/20 19:44 ONETIME ONE Lidocaine/Tetracaine 5 ml 04/02/20 19:43 Let Soln TOP 04/02/20 19:44 ONETIME ONE Departure - Departure Time of Disposition: 21:35 Disposition: Home, Self-Care 01 Condition: Good Clinical Impression: Suicidal ideation, Laceration - Discharge Information Instructions: Suicidal Feelings: How to Help Yourself, Laceration Care, Adult, [id number] Referrals: Shilpi Aguirre PA-C [Primary Care Provider] - Forms: ED Department Discharge Additional Instructions: Please read discharge instructions on suicidal ideation Call your therapist tomorrow Increase the dose of your levothyroxine from 25 microgram to 50 microgram daily Removal of suture in 14 days Take ibuprofen 800 mg with tylenol 1000 mg every 8 hours as needed for pain Sepsis Event Note (ED) - Evaluation Sepsis Screening Result: No Definite Risk - Focused Exam Vital Signs: Vital Signs Temp Pulse Resp BP Pulse Ox 04/02/20 17:40 36.8 C 108 H 16 132/99 H 98
[2020-04-02] MEDS ORDERED: Acetaminophen 500 MG Tab PO ONE (21:26)
[2020-04-02] MEDS ORDERED: Ibuprofen 800 MG Tab PO ONE (21:26)
[2020-04-03 01:29] VITALS: BP 130/90; PULSE 98
== END 2020-04-02 21:40 | disposition home or self-care (01) ==
LOC: FB.ED 17:40
DX: S51.811A Laceration without foreign body of right forearm, initial encounter (principal); S51.812A Laceration without foreign body of left forearm, initial encounter; I10 Essential (primary) hypertension; K21.9 Gastro-esophageal reflux disease without esophagitis; G43.909 Migraine, unspecified, not intractable, without status migrainosus; F41.9 Anxiety disorder, unspecified; F32.9 Major depressive disorder, single episode, unspecified; F17.210 Nicotine dependence, cigarettes, uncomplicated; Z98.890 Other specified postprocedural states; Z90.710 Acquired absence of both cervix and uterus; Z88.0 Allergy status to penicillin; Z88.2 Allergy status to sulfonamides; Z88.1 Allergy status to other antibiotic agents; Z79.899 Other long term (current) drug therapy; W26.8XXA Contact with other sharp object(s), not elsewhere classified, initial encounter
CPT/HCPCS: 12005; 36415; 80053; 80305; 80307; 81001; 84443; 85027; 99284; A9270; J2001

== ENCOUNTER 2021-09-03 08:33 | Day surgery (SDC) | payer OTHER ==
[2021-09-03] MEDS ORDERED: Lidocaine 1% PF 2 ML SDV INJECT ONE (08:34)
[2021-09-03] MEDS ORDERED: Propofol 200 MG/20 ML SDV IV ONE (08:34)
[2021-09-03] MEDS ORDERED: Ketorolac 30 MG/ML SDV IVPUSH ONE (08:34)
[2021-09-03] MEDS ORDERED: Sodium Chloride 0.9% 10 ML Syringe FLUSH PRN (08:45)
[2021-09-03] MEDS ORDERED: Lactated Ringers 1,000 ML IV SCH (08:45)
[2021-09-03 14:09] VITALS: BP 150/83; PULSE 73
== END 2021-09-03 11:30 | disposition home or self-care (01) ==
LOC: FB.SDS 08:33
PROVIDERS: ATTEND Surgery
DX: D12.8 Benign neoplasm of rectum (principal); D50.9 Iron deficiency anemia, unspecified; F41.9 Anxiety disorder, unspecified; K21.9 Gastro-esophageal reflux disease without esophagitis; K82.8 Other specified diseases of gallbladder; G25.81 Restless legs syndrome; G43.909 Migraine, unspecified, not intractable, without status migrainosus; F32.A Depression, unspecified; I10 Essential (primary) hypertension; Z79.899 Other long term (current) drug therapy; Z88.0 Allergy status to penicillin; Z88.2 Allergy status to sulfonamides; Z88.8 Allergy status to other drugs, medicaments and biological substances; Z90.49 Acquired absence of other specified parts of digestive tract; Z87.891 Personal history of nicotine dependence; Z98.890 Other specified postprocedural states
CPT/HCPCS: 00811-QZ; 88305; J1885; J2704; J7120

== ENCOUNTER 2022-01-01 08:36 | Emergency (ER) | payer OTHER ==
[2022-01-01 08:45] VITALS: BP 145/64; PULSE 74
[2022-01-01] MEDS ORDERED: Sodium Chloride 0.9% 10 ML Syringe FLUSH PRN (08:55)
[2022-01-01] MEDS ORDERED: Ondansetron 4 MG/2 ML SDV IVPUSH STA (08:57)
[2022-01-01] MEDS ORDERED: Ketorolac 30 MG/ML SDV IVPUSH STA (08:57)
[2022-01-01] MEDS ORDERED: Morphine 2 MG/ML SYRINGE IVPUSH STA (08:57)
[2022-01-01] MEDS ORDERED: Sodium Chloride 0.9% 1,000 ML IV SCH (09:00)
[2022-01-01 09:23] LABS: ESTIMATED GFR 86 mL/min (>60)
== END 2022-01-01 11:00 | disposition home or self-care (01) ==
LOC: FB.ED 08:36
DX: K59.00 Constipation, unspecified (principal); I10 Essential (primary) hypertension; K21.9 Gastro-esophageal reflux disease without esophagitis; Z88.0 Allergy status to penicillin; Z88.2 Allergy status to sulfonamides; Z88.1 Allergy status to other antibiotic agents; Z79.899 Other long term (current) drug therapy
CPT/HCPCS: 74176; 80048; 81001; 85025; 96374; 96375; 99284; J1885; J2270; J2405; J7030

== ENCOUNTER 2023-01-02 17:54 | Emergency (ER) | payer OTHER ==
[2023-01-02] MEDS ORDERED: Aspirin 325 MG Tab.EC PO ONE (18:10)
[2023-01-02] MEDS ORDERED: Nitroglycerin 0.4 MG Tab.SL SL ONE (18:10)
[2023-01-02] MEDS ORDERED: Sodium Chloride 0.9% 10 ML Syringe FLUSH PRN (18:11)
[2023-01-02 18:18] LABS: BASOPHILS ABSOLUTE AUTO 0.1 x10-3/uL (0.0-0.1); BASOPHILS PERCENT AUTO 0.8 % (0.2-1.5); EOSINOPHILS ABSOLUTE AUTO 0.3 x10-3/uL (0.0-0.8); EOSINOPHILS PERCENT AUTO 4.4 % (0.6-8.1); HEMOGLOBIN 13.3 g/dL (11.4-15.5); LYMPHOCYTES ABSOLUTE AUTO 2.2 x10-3/uL (1.0-4.4); LYMPHOCYTES PERCENT AUTO 34.6 % (18.4-52.1); MEAN CORPUSCULAR HEMOGLOBIN 29.9 pg (23.9-33.9); MEAN CORPUSCULAR VOLUME 87.9 fL (76.7-100.5); MONOCYTES ABSOLUTE AUTO 0.5 x10-3/uL (0.3-1.0); MONOCYTES PERCENT AUTO 7.9 % (4.4-15.7); NEUTROPHILS ABSOLUTE AUTO 3.4 x10-3/uL (1.5-6.3); NEUTROPHILS PERCENT AUTO 52.3 % (30.8-76.2); PLATELET COUNT,PLT 235 x10(3)uL (151-488); RED BLOOD CELL COUNT 4.44 x10(6)uL (3.60-5.20); RED CELL DISTRIBUTION WIDTH 15.6 % (12.3-16.5); WHITE BLOOD CELL COUNT,WBC 6.5 x10-3/uL (3.0-10.3)
[2023-01-02] MEDS ORDERED: Alum Hydroxide/Mag Hydroxide 15 ML, Lidocaine 2% 15 ML PO ONE ×2 (18:18)
[2023-01-02 18:19] LABS: BLOOD UREA NITROGEN,BUN 22 mg/dL (7-18); BUN/CREATININE RATIO 24.4 (9-20); CALCIUM 9.2 mg/dL (8.6-10.2); CARBON DIOXIDE,CO2 27 mmol/L (21-32); CHLORIDE,CL 104 mmol/L (100-110); CREATININE 0.9 mg/dL (0.55-1.02); EST CRCL DRUG DOSING (CG) 58.84 mL/min; ESTIMATED GFR 74 mL/min (>60); GLUCOSE RANDOM 104 mg/dL (80-116); SODIUM,NA 140 mmol/L (135-145)
[2023-01-02 18:25] LABS: ALANINE AMINOTRANSFERASE,ALT 21 U/L (12-36); ALBUMIN 3.9 g/dL (3.5-5.2); ALKALINE PHOSPHATASE 101 IU/L (56-112); ASPARTATE AMNIOTRANSFERASE,AST 20 IU/L (5-25); BILIRUBIN TOTAL 0.2 mg/dL (0.1-1.3); PROTEIN TOTAL,TP 7.9 g/dL (6.0-8.0)
[2023-01-02 18:32] LABS: TROPONIN I 5.3 pg/mL (4.0-60.3)
[2023-01-02] MEDS ORDERED: Albuterol/Ipratropium 3.0-0.5 MG/3 ML Neb Soln NEB ONE (18:36)
[2023-01-02] MEDS ORDERED: methylPREDNISolone Sodium Succinate 125 MG/2 ML SDV IVPUSH ONE (18:36)
[2023-01-02] MEDS ORDERED: Ketorolac 30 MG/ML SDV IVPUSH ONE (19:04)
[2023-01-02 22:06] VITALS: BP 129/73; PULSE 72
[2023-01-04] MEDS ORDERED: Metolazone 2.5 MG Tab PO ONE (13:55)
[2023-01-04] MEDS ORDERED: Furosemide 40 MG/4 ML VIAL IVPUSH ONE (13:55)
== END 2023-01-02 19:55 | disposition home or self-care (01) ==
LOC: FB.ED 17:54
DX: R07.81 Pleurodynia (principal); K21.9 Gastro-esophageal reflux disease without esophagitis; E03.9 Hypothyroidism, unspecified; I48.91 Unspecified atrial fibrillation; F17.210 Nicotine dependence, cigarettes, uncomplicated; Z88.0 Allergy status to penicillin; Z88.2 Allergy status to sulfonamides; Z88.1 Allergy status to other antibiotic agents; Z79.899 Other long term (current) drug therapy
CPT/HCPCS: 36415; 71045; 80053; 83880; 84484; 85025; 93005; 94640; 96374; 96375; 99285; A9270; J1885; J2930; J3490; J7620

== ENCOUNTER 2023-06-20 13:53 | Emergency (ER) | payer OTHER ==
[2023-06-20] MEDS ORDERED: Sodium Chloride 0.9% 10 ML Syringe FLUSH PRN (14:12)
[2023-06-20] MEDS ORDERED: Ondansetron 4 MG/2 ML SDV IVPUSH ONE (14:12)
[2023-06-20] MEDS ORDERED: Ketorolac 30 MG/ML SDV IVPUSH ONE (14:12)
[2023-06-20 14:15] VITALS: PULSE 70
[2023-06-20] MEDS ORDERED: fentaNYL 100 MCG/2 ML SDV IVPUSH ONE ×2 (15:00→15:24)
[2023-06-20] MEDS ORDERED: Naloxone 0.4 MG/ML SDV IVPUSH PRN (15:00)
[2023-06-20] MEDS ORDERED: amLODIPine 5 MG Tab PO ONE (15:02)
[2023-06-20 15:07] VITALS: BP 194/98
[2023-06-20 15:10] LABS: BASOPHILS ABSOLUTE AUTO 0.1 x10-3/uL (0.0-0.1); BASOPHILS PERCENT AUTO 0.8 % (0.2-1.5); EOSINOPHILS ABSOLUTE AUTO 0.3 x10-3/uL (0.0-0.8); HEMATOCRIT 38.8 % (34.2-48.2); HEMOGLOBIN 13.3 g/dL (11.4-15.5); LYMPHOCYTES ABSOLUTE AUTO 2.7 x10-3/uL (1.0-4.4); LYMPHOCYTES PERCENT AUTO 35.9 % (18.4-52.1); MEAN CORPUSCULAR HEMOGLOBIN 30.2 pg (23.9-33.9); MEAN CORPUSCULAR HGB CONC 34.4 g/dL (31.9-34.8); MEAN PLATELET VOLUME 8.8 fL (7.1-12.4); MONOCYTES ABSOLUTE AUTO 0.5 x10-3/uL (0.3-1.0); MONOCYTES PERCENT AUTO 6.3 % (4.4-15.7); PLATELET COUNT,PLT 261 x10(3)uL (151-488); RED BLOOD CELL COUNT 4.41 x10(6)uL (3.60-5.20); RED CELL DISTRIBUTION WIDTH 15.3 % (12.3-16.5); WHITE BLOOD CELL COUNT,WBC 7.6 x10-3/uL (3.0-10.3)
[2023-06-20 15:12] LABS: BLOOD UREA NITROGEN,BUN 19 mg/dL (7-18); BUN/CREATININE RATIO 31.7 (9-20); CALCIUM 9.4 mg/dL (8.6-10.2); CARBON DIOXIDE,CO2 28 mmol/L (21-32); CHLORIDE,CL 103 mmol/L (100-110); CREATININE 0.6 mg/dL (0.55-1.02); EST CRCL DRUG DOSING (CG) 72.52 mL/min; ESTIMATED GFR 103 mL/min (>60); GLUCOSE RANDOM 79 mg/dL (80-116); POTASSIUM,K 3.7 mmol/L (3.5-5.3); SODIUM,NA 137 mmol/L (135-145)
== END 2023-06-20 16:45 | disposition home or self-care (01) ==
LOC: FB.ED 13:53
DX: I16.0 Hypertensive urgency (principal); F17.210 Nicotine dependence, cigarettes, uncomplicated; E78.00 Pure hypercholesterolemia, unspecified; K21.9 Gastro-esophageal reflux disease without esophagitis; E03.9 Hypothyroidism, unspecified; Z90.49 Acquired absence of other specified parts of digestive tract; Z90.710 Acquired absence of both cervix and uterus; Z79.899 Other long term (current) drug therapy; Z88.0 Allergy status to penicillin; Z88.2 Allergy status to sulfonamides; Z88.1 Allergy status to other antibiotic agents
CPT/HCPCS: 80048; 85025; 86140; 86787; 96374; 96375; 99283; A9270; J1885; J2405; J3010; J3490

== ENCOUNTER 2024-01-20 13:52 | Emergency (ER) | payer MEDICARE ==
[2024-01-20] MEDS: Labetalol 20 MG/4 ML Syringe IVPUSH ONE (14:14)
[2024-01-20 14:16] LABS: BASOPHILS ABSOLUTE AUTO 0.1 x10-3/uL (0.0-0.1); BASOPHILS PERCENT AUTO 1.5 % (0.2-1.5); EOSINOPHILS ABSOLUTE AUTO 0.2 x10-3/uL (0.0-0.8); EOSINOPHILS PERCENT AUTO 3.4 % (0.6-8.1); HEMATOCRIT 40.6 % (34.2-48.2); HEMOGLOBIN 13.9 g/dL (11.4-15.5); LYMPHOCYTES ABSOLUTE AUTO 2.4 x10-3/uL (1.0-4.4); LYMPHOCYTES PERCENT AUTO 35.6 % (18.4-52.1); MEAN CORPUSCULAR HEMOGLOBIN 30.2 pg (23.9-33.9); MEAN CORPUSCULAR HGB CONC 34.1 g/dL (31.9-34.8); MEAN CORPUSCULAR VOLUME 88.4 fL (76.7-100.5); MEAN PLATELET VOLUME 8.5 fL (7.1-12.4); MONOCYTES ABSOLUTE AUTO 0.4 x10-3/uL (0.3-1.0); MONOCYTES PERCENT AUTO 6.5 % (4.4-15.7); NEUTROPHILS ABSOLUTE AUTO 3.5 x10-3/uL (1.5-6.3); PLATELET COUNT,PLT 236 x10(3)uL (151-488); RED CELL DISTRIBUTION WIDTH 16.1 % (12.3-16.5); WHITE BLOOD CELL COUNT,WBC 6.6 x10-3/uL (3.0-10.3)
[2024-01-20 14:17] VITALS: BP 199/107; PULSE 60
[2024-01-20 14:38] LABS: BLOOD UREA NITROGEN,BUN 10 mg/dL (7-18); CALCIUM 8.8 mg/dL (8.6-10.2); CARBON DIOXIDE,CO2 27 mmol/L (21-32); CHLORIDE,CL 103 mmol/L (100-110); CREATININE 0.5 mg/dL (0.55-1.02); EST CRCL DRUG DOSING (CG) 87.02 mL/min; ESTIMATED GFR 108 mL/min (>60); GLUCOSE RANDOM 79 mg/dL (80-116); POTASSIUM,K 3.9 mmol/L (3.5-5.3); SODIUM,NA 139 mmol/L (135-145)
[2024-01-20 14:49] LABS: ALANINE AMINOTRANSFERASE,ALT 22 U/L (12-36); ALBUMIN 3.6 g/dL (3.5-5.2); ALKALINE PHOSPHATASE 68 IU/L (56-112); ASPARTATE AMNIOTRANSFERASE,AST 19 IU/L (5-25); BILIRUBIN TOTAL 0.4 mg/dL (0.1-1.3); PROTEIN TOTAL,TP 7.3 g/dL (6.0-8.0)
[2024-01-20] MEDS: Meclizine 25 MG Tab PO ONE (14:49)
[2024-01-20] MEDS: Sodium Chloride 0.9% 10 ML Syringe FLUSH PRN (14:49)
[2024-01-20] MEDS: Ondansetron 4 MG/2 ML SDV IVPUSH ONE (14:49)
[2024-01-20 14:51] LABS: TROPONIN I 5.5 pg/mL (4.0-60.3)
== END 2024-01-20 15:29 | disposition home or self-care (01) ==
LOC: FB.ED 13:52
DX: I16.9 Hypertensive crisis, unspecified (principal); E78.00 Pure hypercholesterolemia, unspecified; K21.9 Gastro-esophageal reflux disease without esophagitis; I10 Essential (primary) hypertension; E03.9 Hypothyroidism, unspecified; Z79.899 Other long term (current) drug therapy; Z88.0 Allergy status to penicillin; Z88.2 Allergy status to sulfonamides
CPT/HCPCS: 36415; 70450; 80053; 83880; 84484; 85025; 93005; 96374; 96375; 99284-25; A9270-GY; J1920; J2405; J3490